=== PATIENT | female | born 1955 | race Caucasian/White ===

== ENCOUNTER 2022-11-17 07:40 | Outpatient (OUT) | payer MEDICARE, SELFPAY ==
--- NOTE | 2022-11-17 07:56 | CA_ITS ---
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: : 1955 Requested By: GILBERT ROSE Order Number: [id number] Reading MD: INDER RAO Interpretive Statements Predominant rhythm is sinus with average rate of 69 bpm Tachycardia - max rate of 177 bpm - 9 episodes of PSVT w/ longest duration of 6 beats - longest episode of 11min 56sec with rate of 113-127 bpm Bradycardia - min rate of 48 bpm, occurring at 2319 - longest episode of 52min 26sec w/ rate of 50-55 bpm Ventricular ectopy - 252 total (<1%) - 239 PVC - 4 couplets NSVT - 1 episode w/ 9 beat duration Patient triggered events: none Impression: Predominant rhythm is sinus with average rate of 69 bpm Fastest rate of 177 bpm and slowest rate of 48 bpm 239 PVC, 4 couplets 1 episodes of NSVT w/ 9 beat duration No pauses or blocks No atrial fibrillation Electronically Signed On 12-04-2022 17:12:37 EDT by INDER RAO
== END 2022-11-17 07:41 | disposition home or self-care (01) ==
LOC: CARD 07:40
PROVIDERS: PCP Family Medicine; Visit Provider Family Medicine
DX: I10 Essential (primary) hypertension (principal); R00.2 Palpitations; Z86.79 Personal history of other diseases of the circulatory system; I34.0 Nonrheumatic mitral (valve) insufficiency; R01.1 Cardiac murmur, unspecified
CPT/HCPCS: 93242

== ENCOUNTER 2022-11-25 07:37 | Outpatient (OUT) | payer MEDICARE, SELFPAY ==
--- NOTE | 2022-11-25 08:15 | CA_ITS ---
Patient: FIONA DE LA PAZ Exam Date: 11/25/2022 : 1955 Gender:F Ordering : DR GILBERT ROSE . Admission #: [id number] Family : Order #: [id number] CLICK HERE TO VIEW EXAM ECHOCARDIOGRAM REPORT PROCEDURE: CA ECHO DOPPLER COMPLETE INDICATIONS: Palpitations, hypertension, h/o rheumatic fever, heart murmur COMPARISON: None. DESCRIPTION: COMPLETE ECHOCARDIOGRAM Real-time transthoracic echocardiography with 2D, M-mode, spectral and color flow Doppler performed. QUALITY: Technical quality was good. LEFT VENTRICLE: Normal chamber size. Thickened septal wall. Normal systolic function. LV EF: Normal left ventricular ejection fraction, (>55%). DIASTOLIC: Grade I diastolic dysfunction. ATRIAL SEPTUM: Visually appears intact. LEFT ATRIUM: Mild dilatation. RIGHT ATRIUM: Normal chamber size. RIGHT VENTRICLE: Normal chamber size. Normal right ventricular systolic function. TRICUSPID VALVE: Normal mobility and thickness. No stenosis with mild regurgitation. Doppler studies reveal mildly (35-45) elevated right sided pressures. RVSP 35 mmHg MITRAL VALVE: Normal mobility and thickness. No evidence of mitral valve stenosis. Mild mitral annular calcification. Mild mitral regurgitation. AORTIC VALVE: Normal trileaflet appearance. No visible sclerosis. Normal leaflet mobility. No evidence of aortic valve stenosis. Trivial aortic regurgitation. AORTIC ROOT: Normal diameter and appearance. PULMONIC VALVE: Normal thickness and mobility. No stenosis. Trivial regurgitation. PERICARDIUM: No evidence of pericardial effusion. IVC: Collapses with inspirations. PLEURA: CONCLUSION: 1. Normal ventricular size and systolic function. LVEF is 55 to 60%. 2. Mild diastolic dysfunction. 3. No significant valvular dysfunction. 4. Mildly elevated right-sided pressures. Adult Echocardiography Procedure Report Left Ventricle LVEDD (3.7 - 5.6 cm): 4.22 cm LVESD (2.2 - 4.0 cm): 3.06 cm LVIVS thickness (0.6 - 1.2 cm): 1.08 cm LVPW thickness (0.5 - 1.0 cm): 0.94 cm e': 0.08 m/s E - e': 8.80 LVOT Max Gradient: 5.13 mm[Hg] LVOT Area (cm2): 1.13 m/s Peak Velocity (LVOT): 1.13 m/s Mean Velocity (LVOT): 0.72 m/s LVOT Diameter 2.21 cm Left Atrium LA Volume Index (2D A2C): 39.11 ml/m2 Left Atrium Systolic Dimension: 3.53 cm Mitral Valve MV E to A Ratio: 0.87 Mitral Valve A-Wave Peak Velocity: 0.78 m/s Mitral Valve E-Wave Peak Velocity: 0.68 m/s Right Ventricle Aorta AO Root Diam: 3.03 cm Ascending Ao Diam: 2.88 cm Aortic Valve AoV Area (Peak Matthieu): 3.10 cm2, 3.10 cm2 AoV Area (VTI): 3.36 cm2, 3.36 cm2 Peak Velocity(Antegrade Flow): 1.40 m/s Peak Gradient(Antegrade Flow): 7.86 mm[Hg] Mean Velocity(Antegrade Flow): 0.91 m/s Mean Gradient(Antegrade Flow): 3.84 mm[Hg] Velocity Time Integral: 28.97 cm Tricuspid Valve Peak Velocity (Regurgitant Flow): 2.84 m/s, 2.34 m/s, 2.67 m/s Pulmonic Valve Peak Velocity: 0.92 m/s Peak Gradient: 3.43 mm[Hg], 3.35 mm[Hg] Right Atrium Right Atrium Systolic Pressure: 33.63 ml, 33.63 ml Dictated by: Giovanny Tipton M.D. on 11/25/2022 at 17:55 Approved by: Giovanny Tipton M.D. on 11/25/2022 at 17:57
== END 2022-11-25 07:38 | disposition home or self-care (01) ==
LOC: CARD 07:37
PROVIDERS: PCP Family Medicine; Visit Provider Family Medicine
DX: R00.2 Palpitations (principal); I10 Essential (primary) hypertension; Z86.79 Personal history of other diseases of the circulatory system; I34.0 Nonrheumatic mitral (valve) insufficiency; R01.1 Cardiac murmur, unspecified
CPT/HCPCS: 93306

== ENCOUNTER 2023-01-03 08:58 | Outpatient (OUT) | payer MEDICARE, SELFPAY ==
--- NOTE | 2023-01-04 13:02 | P.STRESS_ITS ---
Stress Test Stress Test Requesting physician: GILBERT ROSE Procedure: Exercise stress test General Information: Reason for Stress Test: Abnormal echo Cardiac History and Risk Factors: HTN, SVT. Mother with afib. Resting 12 - Lead Electrocardiogram: Rate & rhythm: Normal sinus at a rate of 70. [place]: Normal T-waves: Normal ST-segments: Normal Stress Test: Protocol: Milan protocol was followed. Exercise capacity: Fair exercise capacity. Total exercise time of 6 minutes 31 seconds reached Milan stage 3 at 3.4MPH, 14% grade, & 8.5 METs. Blood pressure: Initial: 144/88, Maximum: 188/108, Recovery: 124/80 Rate & rhythm: Patient remained in sinus rhythm during the exercise and recovery portions of the study.? The maximum heart rate was 160, which was 104% of the maximum predicted heart rate 153. Rare PVCs. ST-segments & T-waves: During recovery, the patient developed 0.5mm ST segment depression in II, III, & aVF and ST downsloping in V5 & V6. Patient response/symptoms: There was no chest pain reported. Interpretation: Abnormal exercise stress test given ST segment depression in the inferior leads and ST segment downsloping in the lateral leads. No chest pain. Liriano Treadmill Score is 4 which places her at a moderate risk. Further investigation is indicated. Clinical correlation required.
== END 2023-01-03 08:59 | disposition home or self-care (01) ==
LOC: CARD 08:58
PROVIDERS: PCP Family Medicine; Visit Provider Family Medicine
DX: I47.20 Ventricular tachycardia, unspecified (principal); Z86.79 Personal history of other diseases of the circulatory system; I34.0 Nonrheumatic mitral (valve) insufficiency; I51.89 Other ill-defined heart diseases; I27.20 Pulmonary hypertension, unspecified; R94.39 Abnormal result of other cardiovascular function study
CPT/HCPCS: 93017

== ENCOUNTER 2023-02-27 06:08 | Outpatient (OUT) | payer MEDICARE, SELFPAY ==
--- NOTE | 2023-02-27 06:15 | NM_ITS ---
Patient Name: FIONA DE LA PAZ MR#: [id number] : 1955 Exam Date: 02/27/2023 Ordering Doctor: DR GILBERT ROSE . RADIOLOGY REPORT PROCEDURE: NM JORGE ALBERTO PERF SPECT REST STR COMPARISON: None. INDICATIONS: VENTRICULAR TACHYCARDIA, HYPERTENSION TECHNIQUE: Exam Description: Stress/Rest one day protocol gated SPECT Rest Imagin.3 mCi Tc-99m Cardiolite IV on 02/27/2023 Stress Imaging 30.8 mCi Tc-99m Cardiolite IV on 02/27/2023 Exercise Protocol: [place] Heart Rate (bpm): Rest: 60 Max: 141 PMHR: 92 Blood Pressure: Rest: 144/96 Max: 196/106 Exercise Time: Minutes: 6 Seconds: 00 Stage Reached: Stage: 2 Mets 7.0 Symptoms: Rest and peak stress ECG findings were abnormal and the exercise portion of the study was abnormal per attending physician Dr. Stephens due to EKG changes. For more details please see separate cardiac stress test report. FINDINGS: QUALITY OF STUDY: Good. PERFUSION DEFECT: None. LOCATION: N/A SIZE: N/A. SEVERITY: N/A. TYPE: N/A. WALL MOTION: Normal. LV SIZE: Normal. 71 mL. TID / TCD: None; 0.8 LVEF: Normal. Calculated EF 81%. SUMMARY: Myocardial perfusion imaging study is NORMAL. CONCLUSION: 1. Normal myocardial perfusion scan with no reversible ischemia 2. Abnormal exercise test secondary to EKG changes Dictated by: Joshua Adames MD on 02/27/2023 at 15:04 Approved by: Joshua Adames MD on 02/27/2023 at 15:07
--- NOTE | 2023-02-27 10:17 | PM.STRESS ---
Stress Test Stress Test Requesting physician: GILBERT ROSE Procedure: Exercise Cardiolite stress test General Information: Reason for Stress Test: Ventricular tachycardia, history of abnormal stress test (which is not available for review) Cardiac History and Risk Factors: Mother had afib. Resting 12 - Lead Electrocardiogram: Rate & rhythm: Sinus bradycardia at a rate of 57. [place]: Normal T-waves: ST-segments: Normal orientation Stress Test: Protocol: Milan protocol was followed, with injection of Cardiolite once target heart rate was achieved. Exercise capacity: Fair exercise capacity. Total exercise time of 6 minutes reached Milan stage 2 at 2.5MPH, 12% grade, & 7 METs. Blood pressure: Initial: 144/96, Maximum: 196/106, Recovery: 142/88 Rate & rhythm: Patient remained in sinus rhythm during the exercise and recovery portions of the study.? The maximum heart rate was 141, which was 92% of the maximum predicted heart rate 153. PACs noted once target heart rate achieved. ST-segments & T-waves: During recovery, there was ST-segment downsloping in the inferior leads (II, III, aVF) and 0.5-1mm ST-segment depression in V4-6. Patient response/symptoms: No chest pain reported. Interpretation: This is an abnormal exercise stress test based on abnormal ST-segment changes in the inferolateral leads. Cardiolite imaging interpretation will be reported separately. Clinical correlation required.?
== END 2023-02-27 06:09 | disposition home or self-care (01) ==
LOC: NM 06:09
PROVIDERS: PCP Family Medicine; Visit Provider Family Medicine
DX: R94.39 Abnormal result of other cardiovascular function study (principal); I47.29 Other ventricular tachycardia; Z86.79 Personal history of other diseases of the circulatory system; I10 Essential (primary) hypertension; R94.31 Abnormal electrocardiogram [ECG] [EKG]
CPT/HCPCS: 78452; 93017; A9500

== ENCOUNTER 2024-10-21 09:56 | Outpatient (OUT) | payer MEDICARE, SELFPAY ==
--- OUTSIDE RECORDS SUMMARY | 2024-10-21 10:00 | XMS_ITS | Encounter Summary ---
Author Organization [facility] Address [address] [place] [address] Care Team Providers Care Art Education Professor Name Role Phone Lorenzo Ellington MD Unavailable [phone] Lorenzo Ellington MD Primary Care Provider [phone] Encounter Details Date Type Department Care Team (Late st Contact Info) Description 05/04/2023 Orders Only [facility] [address] [place] [address] Lorenzo Ellington MD [address] [facility] [address] [place] [address] Social History Tobacco Use Types Packs/Day Years Used Date Smoking Tobacco: Never Passive Smoke Exposure: Never Smokeless Tobacco: Never Alcohol Use Standard Drinks/Week Comments Yes 2 (1 standard drink = 0.6 oz pure alcohol) Caffeine intake: 2 cups per day coffee Humiliation, Afraid, Rape, and Kick questionnair e Answer Date Recorded Within the last year, have y ou been afraid of your partner or ex-partner? No 01/12/2023 Within the last year, have y ou been humiliated or emotionally abused in other ways by your partner or ex-partner? No Within the last year, have y ou been kicked, hit, slapped, or otherwise physically hurt by your partner or ex-partner? No 01/12/2023 Within the last year, have y ou been raped or forced to have any kind of sexual activity by your partner or ex-partner? No 01/12/2023 Social Connection and Isolat ion Panel [NHANES] Answer Date Recorded In a typical week, how many times do you talk on the phone with family, friends, or neighbors? More than three times a week 01/12/2023 How often do you get togethe r with friends or relatives? Twice a week 01/12/2023 How often do you attend chur or restorationist services? 1 to 4 times per year 01/12/2023 Do you belong to any clubs o r organizations such as scientology groups, unions, fraternal or athletic groups, or school groups? No 01/12/2023 How often do you attend meet ings of the clubs or organizations you belong to? Never 01/12/2023 Are you , , di vorced, , never , or living with a partner? 01/12/2023 AUDIT-C Answer Date Recorded Q1: How often do you have a drink containing alc ohol? Monthly or less 01/12/2023 Q2: How many drinks containi ng alcohol do you have on a typical day when you are drinking? 1 or 2 01/12/2023 Q3: How often do you have si x or more drinks on one occasion? Never 01/12/2023 Overall Financial Resource Strain (CARDIA) Answe r Date Recorded How hard is it for you to pa y for the very basics like food, housing, medical care, and heating? Not hard at all 01/12/2023 PHQ-2 Answer Date Recorded Patient Health Questionnaire-2 Score 0 01/12/2023 [facility] - Occupational Stress Questionnaire Answer Date Recorded Do you feel stress - tense, restless, nervous, or anxious, or unable to sleep at night because your mind is troubled all the time - these days? To some extent 01/12/2023 Exercise Vital Sign Answer Date Recorde d On average, how many days pe r week do you engage in moderate to strenuous exercise (like a brisk walk)? 2 days 01/12/2023 On average, how many minutes do you engage in exercise at this level? 30 min 01/12/2023 Hunger Vital Sign Answer Date Recorded Within the past 12 months, y ou worried that your food would run out before you got the money to buy more. Never true 01/13/20 Within the past 12 months, t he food you bought just didn't last and you didn't have money to get more. Never true 01/12/2023 PRAPARE - Transportation Answer Date Re corded In the past 12 months, has l ack of transportation kept you from medical appointments or from getting medications? No 12/19 In the past 12 months, has l ack of transportation kept you from meetings, work, or from getting things needed for daily living? No 01/12/2023 Housing Stability Vital Sign Answer Shayan e Recorded In the last 12 months, was t here a time when you were not able to pay the mortgage or rent on time? No 01/12/2023 In the last 12 months, how many places have you lived? 1 01/12/2023 In the last 12 months, was t here a time when you did not have a steady place to sleep or slept in a nursing home (including now)? No 01/12/2023 Comments No Sex and Gender Information Value Date Recorded Sex Assigned at Not on file Legal Sex Female 6:41 PM EDT Gender Identity Not on file Sexual Orientation Not on file documented as of this encounter Plan of Treatment Upcoming Encounters Date Type Department Care Team (Late st Contact Info) Description 04/02/2025 10:30 AM EST Office Visit [facility] [address] [facility] [address] [place] [address] Lorenzo Ellington MD [address] [address] documented as of this encounter Visit Diagnoses Not on filedocumented in this encounter Additional Health Concerns Assessment Noted Time PHQ-9 Depression Total Score: 0 01/13/20 2:00 PM EDT documented as of this encounter Care Teams Art Education Professor Relationship Specialty Start Date End Date Lorenzo Ellington MD [address] [place] [address] (Fax) PCP - ACO Reach 08/11/22 Lorenzo Ellington MD [address] [address] PCP - General Family Medicine 07/26/22 documented as of this encounter
--- OUTSIDE RECORDS SUMMARY | 2024-10-21 10:00 | XMS_ITS | Clinical Summary ---
Author Organization [facility] Address [address] [place], [place] [id number] Care Team Providers Care Crutching Contractor Name Role Phone Unavailable Primary Care Provider Unavailabl e Allergies No known active allergies Medications paroxetine (PAXIL) 10 mg ORAL tablet Take 1 tablet by mouth once daily. 0 07/09/2010 Active mesalamine (ASACOL) 400 mg ORAL EC tablet Take 1 tablet by mouth twice daily. 0 07/09/2010 Active acetaminophen-h ydrocodone (VICODIN) 5-500 mg ORAL per tablet Take 1-2 tablets by mouth every 6 hours as needed for Pain. for pain. 0 07/09/2010 Active Social History Tobacco Use Types Packs/Day Years Used Date Smoking Tobacco: Never Smokeless Tobacco: Never Alcohol Use Standard Drinks/Week Comments Yes 0 (1 standard drink = 0.6 oz pur e alcohol) occ. Comments Unknown Sex and Gender Information Value Date Recorded Sex Assigned at Not on file Legal Sex Female 8:35 AM EST Gender Identity Not on file Sexual Orientation Not on file Plan of Treatment Health Maintenance Due Date Last Done Comments Anxiety Screening 11/03/1973 Depression Screening 11/03/1973 Hepatitis C Screening 11/03/1973 DTaP,Tdap,Td Vaccine (1 - Tdap) 11/03/[address] Colonography 11/03/2000 Cologuard (FIT-DNA) 11/03/2000 Colonoscopy 11/03/2000 Colorectal Cancer Screening 11/03/2000 Diabetes Screening 11/03/2000 Fecal Occult Blood 11/03/2000 Lipid Screening 11/03/2000 Sigmoidoscopy 11/03/2000 Pneumococcal Vaccine: 50+ (1 of 1 - PCV) 11/03/2005 Shingrix Vaccine (1 of 2) 11/03/2005 Bone Density Screening 11/03/2020 Advance Directive Discussion 03/20/2024 Influenza Vaccine (#1) 2024 RSV Vaccine (1 - 1-dose 75+ series) 11/03/2030 Insurance [facility] PPO
--- OUTSIDE RECORDS SUMMARY | 2024-10-21 10:00 | XMS_ITS | Clinical Summary ---
Author Organization [facility] Address [address] [place] [address] Care Team Providers Care Turntable Engineer Name Role Phone Lorenzo Ellington MD Unavailable [phone] Lorenzo Ellington MD Primary Care Provider [phone] Allergies Active Allergy Reactions Criticality Noted Date Comments Azatadine Low 11/10/2022 Other Reaction(s): hives Cefuroxime Low 11/10/2022 Other Reaction(s): hives Metoprolol Anxiety,Dizziness Low 06/29/2023 Pseudoephedrine Low 11/10/2022 Other Reaction(s): hives Tramadol Low 11/10/2022 Other Reaction(s): hives Medications ALPRAZolam (Xanax) 0.25 MG tabletIndication s:Situational mixed anxiety and depressive disorder Take 1 tablet (0.25 mg) by mouth 3 (three) times a day as needed for anxiety for up to 7 days 21 tablet 4 Active nebivolol (Bystolic) 10 MG tabletIndication s:Primary hypertension Take 1 tablet (10 mg) by mouth Daily Pt using good rx instead insurance 90 tablet 1 5 03/23/19 26 Active losartan (Cozaar) 100 MG tabletIndication s:Primary hypertension Take 1 tablet (100 mg) by mouth Daily 90 tablet 1 5 03/23/19 26 Active nebivolol (Bystolic) 10 MG tabletIndication s:Primary hypertension Take 1 tablet (10 mg) by mouth Daily Pt using good rx instead insurance 90 tablet 1 5 09/25/19 25 Discontin ued(Reord er) citalopram (CeleXA) 20 MG tabletIndication s:MONTSERRAT (generalized anxiety disorder) Take 1 tablet (20 mg) by mouth Daily 90 tablet 1 5 10/02/19 25 Discontin ued(Thera py completed ) losartan (Cozaar) 100 MG tabletIndication s:Primary hypertension Take 1 tablet (100 mg) by mouth Daily 90 tablet 5 09/25/19 25 Discontin ued(Reord er) Active Problems Problem Noted Date Diagnosed Date Overweight (BMI 25.0-29.9) 09/11/2024 History of invasive ductal carcinoma of breast 0 06/05/2024 Overview (06/05/2024): 2018 Stage T1a N0 M0 left upper outer quadrant MONTSERRAT (generalized anxiety disorder) 10/23/2023 Nonsustained ventricular tachycardia 06/21/2023 Overview (06/21/2023): December 01, 2022 on Holter monitor. Pulmonary hypertension 06/21/2023 Overview (06/21/2023): Echocardiogram November 2022, elevated right side pressure 35-40 Abnormal finding on cardiovascular stress test 1 Overview (06/21/2023): February 2023 Initial exercise stress test demonstrated abnormalities in the inferior wall region. Subsequent stress Cardiolite testing again reproduced the EKG changes, but the myocardial perfusion images were normal. History of rheumatic fever 11/20/2022 Diverticulosis of large intestine without hemorr cuca 11/10/2022 Generalized osteoarthrosis, involving multiple s ites 11/10/2022 Heart murmur 11/10/2022 Nonrheumatic mitral valve regurgitation 11/11/19 23 Overview (06/21/2023): Echocardiogram November 2022 Mild mitral annular calcification. Mild mitral regurgitation Presence of left artificial knee joint Primary hypertension 11/10/2022 Primary osteoarthritis of right knee 11/10/2022 Resolved Problems Problem Noted Date Diagnosed Date Resolved Date Situational mixed anxiety an d depressive disorder 10/23/2023 05/29/2024 Polypharmacy 10/23/2023 05/14/2024 Special screening for malign ant neoplasms, colon 10/09/2023 09/10/2024 Lymphocytic colitis 11/10/2022 11/08/19 Encounters Date Type Department Care Team Description 09/24/2024 9:00 AM EDT Office Visit [facility] [address] [place] [address] [place] [address] Lorenzo Ellington MD Primary hypertension ; MONTSERRAT (generalized anxiety disorder) ; Overweight (BMI 25.0-29.9); Screening for diabetes mellitus (DM); Encounter for lipid screening for cardiovascular disease; Nonrheumatic mitral valve regurgitation; Rheumatic aortic valve insufficiency; Heart murmur; Pulmonary hypertension (HCC) 09/24/2024 Bamboo flowsheet [facility] [address] [place] [address] [place] [address] Lorenzo Ellington MD 09/24/2024 Travel 09/18/2024 Travel 09/17/2024 Refill [facility] [address] [place] [address] [place] [address] Lorenzo Ellington MD Primary hypertension 09/11/2024 2:00 PM EDT Procedure Visit [facility] [address] [place] [address] [place] [address] Lorenzo Ellington MD Chronic pain of right knee (Primary Dx); Primary osteoarthritis of right knee; Overweight (BMI 25.0-29.9) 09/11/2024 Travel 08/20/2024 Telephone [facility] [address] [place] [address] [place] [address] Marcia Acharya ANGEL Care Coordination 08/13/2024 Telephone [facility] [place] [address] [place] [address] Marcia Acharya MA Care Coordination 08/08/2024 Telephone [facility] [address] [address] Lorenzo Ellington MD from Last 3 Months Immunizations Immunization Administration Dates Next Due Hep B, adult 01/21/2000,08/06/1999,07/07/1999 Family History Medical History Relation Name Comments COD Father Piyush Depression Father Piyush Fall Father Piyush Hypertension Father Piyush Arthritis Mother Su Atrial fibrillation Mother Su Hearing loss Mother Su Heart disease Mother Su Colon cancer Paternal Grandfather Petr Heart disease Paternal Grandfather [place] Breast cancer Neg Hx Ovarian cancer Neg Hx Relation Name Status Comments Brother 2 brothers Daughter Alive 2 daughters Father Piyush Mother Su Other spouse Paternal Grandfather Petr Sister 1 sister Son Alive 1 son Social History Tobacco Use Types Packs/Day Years Used Date Smoking Tobacco: Never Passive Smoke Exposure: Never Smokeless Tobacco: Never Tobacco Cessation:Counseling Given: Yes Alcohol Use Standard Drinks/Week Comments Not Currently 2 (1 standard drink = 0.6 oz pure alcohol) Caffeine intake: 2 cups per day coffee B1300 Health Literacy Answer Date Recor ded How often do you need to hav e someone help you when you read instructions, pamphlets, or other written material from your doctor or pharmacy? Never 05/01/2024 Humiliation, Afraid, Rape, and Kick questionnair e [...] neighbors? More than three times a week 05/01/2024 How often do you get togethe r with friends or relatives? Once a week 05/01/2024 How often do you attend chur ch or gnosticist services? Never 05/01/2024 Do you belong to any clubs o r organizations such as latter day groups, unions, fraternal or athletic groups, or school groups? No 05/01/2024 How often do you attend meet ings of the clubs or organizations you belong to? Never 05/01/2024 Are you , , di vorced, , never , or living with a partner? 05/01/2024 AUDIT-C Answer Date Recorded Q1: How often do you have a drink containing alcohol? Monthly or less 05/01/2024 Q2: How many drinks containi ng alcohol do you have on a typical day when you are drinking? Patient does not drink Q3: How often do you have si x or more drinks on one occasion? Never 05/01/2024 Overall Financial Resource Strain (CARDIA) Answe r Date Recorded How hard is it for you to pa y for the very basics like food, housing, medical care, and heating? Not hard at all 05/01/2024 PHQ-2 Answer Date Recorded Patient Health Questionnaire-2 Score 0 09/24/2024 [facility] - Occupational Stress Questionnaire Answer Date Recorded Do you feel stress - tense, restless, nervous, or anxious, or unable to sleep at night because your mind is troubled all the time - these days? Only a little 05/01/2024 Exercise Vital Sign Answer Date Recorde d On average, how many days pe r week do you engage in moderate to strenuous exercise (like a brisk walk)? 1 day 05/01/2024 On average, how many minutes do you engage in exercise at this level? 30 min 05/01/2024 Hunger Vital Sign Answer Date Recorded Within the past 12 months, y ou worried that your food would run out before you got the money to buy more. Never true 05/01/19 25 Within the past 12 months, t he food you bought just didn't last and you didn't have money to get more. Never true 05/01/2024 PRAPARE - Transportation Answer Date Re corded In the past 12 months, has l ack of transportation kept you from medical appointments or from getting medications? No 04/20 In the past 12 months, has l ack of transportation kept you from meetings, work, or from getting things needed for daily living? No 05/01/2024 Housing Stability Vital Sign Answer Shayan e [...] place to sleep or slept in a [place] facility (including now)? No 01/12/2023 Housing Stability Vital Sign Answer Shayan e Recorded In the last 12 months, was t here a time when you were not able to pay the mortgage or rent on time? No 05/01/2024 In the past 12 months, how m any times have you moved where you were living? 1 05/01/2024 At any time in the past 12 m [facility], were you homeless or living in a [place] health [place] facility (including now)? No 05/01/2024 Comments No Sex and Gender Information Value Date Recorded Sex Assigned at Not on file Legal Sex Female 6:41 PM EDT Gender Identity Not on file Sexual Orientation Not on file Last Filed Vital Signs Vital Sign Reading Time Taken Comments Blood Pressure 128/76 09/24/2024 9:05 AM EDT Pulse 51 09/24/2024 9:05 AM EDT Temperature - - Respiratory Rate - - Oxygen Saturation 98% 09/24/2024 9:05 AM EDT Inhaled Oxygen Concentration - - Weight 78 kg (172 lb) 09/24/2024 9:05 AM EDT Height 167.6 cm (5' 6 ) 09/24/2024 9:05 AM EDT Body Mass Index 27.76 09/24/2024 9:05 AM EDT Plan of Treatment Upcoming Encounters Date Type Department Care Team (Late st Contact Info) Description 04/02/2025 10:30 AM EST Office Visit [facility] 112 [facility] 100 [place] [address] Lorenzo Ellington MD 112 [facility] 100 [place] [address] Health Maintenance Due Date Last Done Comments CT Colonography 1955 FIT-DNA 1955 FIT 1955 FOBT 1955 Sigmoidoscopy 1955 Influenza Vaccine (#1) 2024 Mammogram 12/24/2024 12/25/2023, 04/2022, 12/14/2021, Additional history exists Pneumococcal Vaccine: 65+ Years (1 of 2 - PCV) 05/08/2025 Postponed from 11/03/1974 (Patient Refused) Medicare Annual Wellness (AWV) 05/29/2025 05/29/2024, 01/12/2023, 05/24/2021 Colonoscopy 10/30/2033 10/31/2023, 10/18, 05/13/2013 Colorectal Cancer Screening 10/30/2033 Procedures Procedure Name Priority Date/Time Associated Diagnosis Comments BI MAMMOGRAM SCREENING TOMOSYNTHESIS BILATERAL 12/25/2023 3:38 PM EDT COLONOSCOPY Routine 10/31/2023 9:36 AM EDT from Last 3 Months or Most Recently Relevant to Health Maintenance Results * Bilateral screening mammogram with tomosynthesis (12/25/2023 3:38 PM EDT) Anatomical Region Laterality Modality Breast Bilateral Mammography 12/25/2023 3:38 PM EDT Impressions 12/25/2023 3:41 PM EDT NO MAMMOGRAPHIC EVIDENCE OF MALIGNANCY. ROUTINE FOLLOW-UP IS RECOMMENDED IN ONE YEAR. RESULT CODE: 1 Negative DENSITY CODE: 2 (approximately 25-50% glandular) FOLLOW UP: 1YR The false-negative rate of mammography is approximately 10-percent. Management of a palpable abnormality must be based on clinical grounds. Patient was entered into a reminder system with a target due date for the next mammogram. Impression dictated by: Kevin Salcedo Jr., D.O.12/25/2023 3:39 PM Dictation Location: [id number] Transcribed By: TRISTAN 12/25/23 1539 Dictated By: Kevin Salcedo Jr, DO 12/25/23 1538 Signed By: <Electronically signed by Kevin Salcedo Jr, DO in OV> 12/25/23 1539 Narrative 12/25/2023 3:41 PM EDT [address] [address] Mammography Report Signed Patient: Ruth Richards MR#: [id number] 92 : 1955 Acct:[id number] Age/Sex: 68 / F ADM Date: 12/25/23 Loc: MA Room: Type: REG CLI Attending Dr: Lorenzo Ellington MD Copies to: Lorenzo Ellington MD Ordering Provider: Lorenzo Ellington MD Date of Service: 12/25/23 MM/MM screening mammo BI w/CAD: SCREENING CLINICAL DATA: Screening for malignancy. History of left-sided breast cancer status post lumpectomy in 2014. SCREENING MAMMOGRAM - FULL FIELD DIGITAL WITH TOMOSYNTHESIS AND CAD COMPARISON:Mammograms dating back to 2020 Tomosynthesis craniocaudal and mediolateral oblique views of both breasts were obtained using low- dose digital technique. This examination was reviewed with the aid of CAD. FINDINGS: The breast tissue is composed of scattered fibroglandular densities. There are no dominant masses, typically malignant calcifications or architectural distortion. There has been no significant interval change. MM/MM screening mammo BI w/CAD Procedure Note Radiology, Radiologist, MD - 12/25/[address] [address] Mammography Report Signed Patient: Ruth Richards EMR#: [id number] [birth year] : 6Acct:[id number] Age/Sex: 68 / FADM Date: 12/25/23 Loc: MA Room:Type: REG CLI Attending Dr: Lorenzo Ellington MD Copies to: Lorenzo Ellington MD Ordering Provider: Lorenzo Ellington MD Date of Service: 12/25/23 MM/MM screening mammo BI w/CAD: SCREENING CLINICAL DATA: Screening for malignancy. History of left-sided breastcancer status post lumpectomy in 2015. SCREENING MAMMOGRAM - FULL FIELD DIGITAL WITH TOMOSYNTHESIS AND CAD COMPARISON:Mammograms dating back to 2020 Tomosynthesis craniocaudal and mediolateral oblique views of both breastswere obtained using low- dose digital technique. This examination was reviewed with the aid ofCAD. FINDINGS: The breast tissue is composed of scattered fibroglandular densities.There are no dominant masses, typically malignant calcifications or architectural distortion. There hasbeen no significant interval change. MM/MM screening mammo BI w/CAD IMPRESSION: NO MAMMOGRAPHIC EVIDENCE OF MALIGNANCY. ROUTINE FOLLOW-UP IS RECOMMENDED IN ONE YEAR. RESULT CODE: 1 Negative DENSITY CODE: 2 (approximately 25-50% glandular) FOLLOW UP: 1YR The false-negative rate of mammography is approximately 10-percent. Management of a palpable abnormality must be based on clinical grounds. Patient was entered into a reminder system with a target due date for thenext mammogram. Impression dictated by: Kevin Salcedo Jr., D.O.12/25/2023 3:39 PM Dictation Location: [facility] Transcribed By: [facility] 12/25/23 1539 Dictated By: Kevin Salcedo Jr, DO 12/25/23 1538 Signed By: <Electronically signed by Kevin Salcedo Jr, DO inOV> 12/25/23 1539 Lorenzo Ellington MD IMG BI PROCEDURES Final Resu lt * Colonoscopy (10/31/2023 9:36 AM EDT) Anatomical Region Laterality Modality Endoscopy Josh Cole DO ENDOSCOPY PROCEDURE ORDER CHAY Final Result from Last 3 Months or Most Recently Relevant to Health Maintenance Insurance MEDICARE Advance Directives Documents on File Type Date Recorded Patient Crystal 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
--- OUTSIDE RECORDS SUMMARY | 2024-10-21 10:00 | XMS_ITS | Encounter Summary ---
Author Organization [facility] Address [address] [place] [address] Care Team Providers Care Burial Vault Deliverer And Installer Name Role Phone Lorenzo Rose MD Unavailable [phone] Lorenzo Rose MD Primary Care Provider [phone] Encounter Details Date Type Department Care Team (Late Contact Info) Description 12/01/2022 Clinisync Result Encounter [facility] External Department Unsolicited Lorenzo Rose MD [address] [address] Social History Tobacco Use Types Packs/Day Years Used Date Smoking Tobacco: Never Passive Smoke Exposure: Never Smokeless Tobacco: Never Alcohol Use Standard Drinks/Week Comments Yes 2 (1 standard drink = 0.6 oz pure alcohol) Caffeine intake: 2 cups per day coffee Comments No Sex and Gender Information Value Date Recorded Sex Assigned at Not on file Legal Sex Female 6:41 PM EDT Gender Identity Not on file Sexual Orientation Not on file documented as of this encounter Plan of Treatment Upcoming Encounters Date Type Department Care Team (Late Contact Info) Description 04/02/2025 10:30 AM EST Office Visit [facility] 112 [facility] 100 [place] [address] Lorenzo Rose MD 112 [facility] 100 [place] [address] documented as of this encounter Procedures Procedure Name Priority Date/Time Associated Diagnosis Comments CA HOLTER MONITOR 2-7 DAYS 12/01/2022 8:28 AM EDT documented in this encounter Results * CA HOLTER MONITOR 2-7 DAYS (12/01/2022 8:28 AM EDT) Anatomical Region Laterality Modality Other 12/01/2022 8:28 AM EDT Narrative 12/01/2022 8:28 [place] [address] Cardiology Report Signed Patient: FIONA RICHARDS MR#: [id number] : 1955 Acct:[id number] Age/Sex: 67 / F ADM Date: 11/17/22 Loc: CARD Attending Dr: LORENZO ROSE Ordering Physician: LORENZO ROSE Date of Service: 11/17/22 Procedure(s): CA holter montior 2-7 days Accession Number(s): [id number] cc: [facility] Test Date: 2022-12-01 Pat Name: FIONA RICHARDS Department: Room: - Gender: Female Machine Bander And Cellophaner: : 1955 Requested By: LORENZO ROSE Order Number: [id number] Reading MD: ROMAINE RAO Interpretive Statements Predominant rhythm is sinus with average rate of 69 bpm Tachycardia - max rate of 177 bpm - 9 episodes of PSVT w/ longest duration of 6 beats - longest episode of 11min 56sec with rate of 113-127 bpm Bradycardia - min rate of 48 bpm, occurring at 2319 - longest episode of 52min 26sec w/ rate of 50-55 bpm Ventricular ectopy - 252 total (<1%) - 239 PVC - 4 couplets NSVT - 1 episode w/ 9 beat duration Patient triggered events: none Impression: Predominant rhythm is sinus with average rate of 69 bpm Fastest rate of 177 bpm and slowest rate of 48 bpm 239 PVC, 4 couplets 1 episodes of NSVT w/ 9 beat duration No pauses or blocks No atrial fibrillation Electronically Signed On 12-04-2022 17:12:37 EDT by ROMAINE RAO Dictated By: Romaine Rao D.O. Signed By: 12/04/22171212/04/221712 DD/ 7 TD/TT: Arch Cushion Skiving Machine Operator: Procedure Note Radiology, Radiologist, - 12/08/2022 [address] [place] [id number] Cardiology Report Signed Patient: FIONA RICHARDS EMR#: [id number] : 1955cct:[id number] Age/Sex: 67 / FADM Date: 11/17/22 Loc: CARD Attending Dr: LORENZO ROSE Ordering Physician: LORENZO ROSE Date of Service: 11/17/22 Procedure(s): CA holter montior 2-7 days Accession Number(s): [id number] cc: [facility] Test Date: 2022-12-01 Pat Name: FIONA RICHARDS Department: Room: - Gender: Female Machine Bander And Cellophaner: : 1955 Requested By: LORENZO ROSE Order Number: [id number] Reading MD: ROMAINE RAO Interpretive Statements Predominant rhythm is sinus with average rate of 69 bpm Tachycardia - max rate of 177 bpm - 9 episodes of PSVT w/ longest duration of 6 beats - longest episode of 11min 56sec with rate of 113-127 bpm Bradycardia - min rate of 48 bpm, occurring at 2319 - longest episode of 52min 26sec w/ rate of 50-55 bpm Ventricular ectopy - 252 total (<1%) - 239 PVC - 4 couplets NSVT - 1 episode w/ 9 beat duration Patient triggered events: none Impression: Predominant rhythm is sinus with average rate of 69 bpm Fastest rate of 177 bpm and slowest rate of 48 bpm 239 PVC, 4 couplets 1 episodes of NSVT w/ 9 beat duration No pauses or blocks No atrial fibrillation Electronically Signed On 12-04-2022 17:12:37 EDT by ROMAINE RAO Dictated By: Romaine Rao D.O. Signed By:12/04/22171212/04/221712 DD/ 7 TD/TT: Arch Cushion Skiving Machine Operator: Lorenzo Rose MD [facility] Final Resu lt documented in this encounter Visit Diagnoses Not on filedocumented in this encounter Care Teams Burial Vault Deliverer And Installer Relationship Specialty Start Date End Date Lorenzo Rose MD 112 [facility] [address] [place] [address] PCP - ACO Reach 08/11/22 Lorenzo Rose MD [address] [address] PCP - General Family Medicine 07/26/22 documented as of this encounter
--- OUTSIDE RECORDS SUMMARY | 2024-10-21 10:00 | XMS_ITS | Encounter Summary ---
Author Organization [facility] Address [address] [place] [address] Care Team Providers Care Gate Agent Name Role Phone Lorenzo Ellington MD Unavailable [phone] Lorenzo Ellington MD Primary Care Provider [phone] Encounter Details Date Type Department Care Team (Late st Contact Info) Description 12/25/2023 External Result Encounter [facility] External Department Unsolicited Lorenzo Ellington MD [address] [place] [address] Social History Tobacco Use Types Packs/Day Years Used Date Smoking Tobacco: Never Passive Smoke Exposure: Never Smokeless Tobacco: Never Alcohol Use Standard Drinks/Week Comments Not Currently [...] How often do you attend chur or hindu services? 1 to 4 times per year 01/12/2023 Do you belong to any clubs o r organizations such as mormonism groups, unions, fraternal or athletic groups, or [...] Recorded Patient Health Questionnaire-2 Score 0 01/12/2023 [facility] - Occupational [...] money to buy more. Never true 01/13/20 23 Within the past 12 months, t he [...] place to sleep or slept in a intermediate (including now)? No 01/12/2023 Comments No Sex [...] Visit [facility] 112 [facility] 100 [place] [address] Lorenzo Ellington MD 112 [facility] 100 [place] [address] documented as of this encounter Procedures Procedure Name Priority Date/Time Associated Diagnosis Comments BI MAMMOGRAM SCREENING TOMOSYNTHESIS BILATERAL 12/25/2023 3:38 PM EDT documented in this encounter Results * Bilateral screening mammogram with tomosynthesis [...] mammogram. Impression dictated by: Kevin Salcedo Jr., D.ODanitza12/25/2023 3:39 PM Dictation Location: [facility] Transcribed By: PWS 12/25/23 1539 Dictated By: Kevin Salcedo Jr, DO 12/25/23 1538 Signed By: <Electronically signed by Kevin Salcedo Jr, DO in OV> 12/25/23 1539 Narrative 12/25/2023 3:41 PM EDT [place] [id number] Mammography Report Signed Patient: Ruth Richards MR#: [id number] 92 : 1955 Acct:[id number] Age/Sex: 68 / F ADM Date: 12/25/23 Loc: MD Room: Type: [facility] Attending Dr: Lorenzo Ellington MD Copies to: [...] mammo BI w/CAD Procedure Note Radiology, Radiologist, - 12/25/[address] [address] Mammography Report Signed Patient: Ruth Richards EMR#: [id number] [birth year] : 6Acct:[id number] Age/Sex: 68 / FADM Date: 12/25/23 Loc: MD Room:Type: [facility] Attending Dr: Lorenzo Ellington MD Copies to: Lorenzo Ellington MD Ordering Provider: Lorenzo Ellington MD Date of Service: 12/25/23 MM/MM screening mammo BI w/CAD: SCREENING CLINICAL DATA: Screening for malignancy. History of left-sided breastcancer status post lumpectomy in 2014. SCREENING MAMMOGRAM [...] Salcedo Jr., D.O.12/25/2023 3:39 PM Dictation Location: [facility] Transcribed By: TRISTAN 12/25/23 1539 Dictated By: Kevin Salcedo Jr, DO 12/25/23 1538 Signed By: <Electronically signed by Kevin Salcedo Jr, DO inOV> 12/25/23 1539 us Lorenzo Ellington MD IMG BI PROCEDURES Final Resu lt documented in this encounter Visit Diagnoses Not on filedocumented in this encounter Additional Health Concerns Assessment Noted Time PHQ-9 Depression Total Score: 0 01/13/20 23 2:00 PM EDT documented as of this encounter Care Teams Gate Agent Relationship Specialty Start Date End Date Lorenzo Ellington MD [address] [place] [address] PCP - ACO Reach 08/11/22 Lorenzo Ellington MD [address] [place] [address] PCP - General Family Medicine 07/26/22 documented as of this encounter
--- OUTSIDE RECORDS SUMMARY | 2024-10-21 10:00 | XMS_ITS | Clinical Summary ---
Author Organization [facility] Address [address] [place] [address] Phone Care Team Providers Care Roller Operator Name Role Phone Unavailable Primary Care Provider Unavailabl e Social History Tobacco Use Types Packs/Day Years Used Date Smoking Tobacco: Never Assessed Comments Unknown Sex and Gender Information Value Date Recorded Sex Assigned at Not on file Legal Sex Female 10:53 PM EST Gender Identity Not on file Sexual Orientation Not on file Plan of Treatment Not on file
--- OUTSIDE RECORDS SUMMARY | 2024-10-21 10:00 | XMS_ITS | Encounter Summary ---
Author Organization [facility] Address [address] [place] [address] Care Team Providers Care Exhaust And Muffler Repairer Name Role Phone Lorenzo Rose MD Unavailable [phone] Lorenzo Rose MD Primary Care Provider [phone] Encounter Details Date Type Department Care Team (Late st Contact Info) Description 02/27/2023 Clinisync Result Encounter [facility] External Department Unsolicited Lorenzo Rose MD [address] [place], [place] [id number] Social History Tobacco Use Types Packs/Day Years [...] How often do you attend chur or jewish services? 1 to 4 times per year 01/12/2023 Do you belong to any clubs o r organizations such as confucianism groups, unions, fraternal or athletic groups, or [...] Health Questionnaire-2 Score 0 01/12/2023 [facility] - Occupational Stress [...] place to sleep or slept in a halfway (including now)? No 01/12/2023 Comments No Sex and Gender Information Value Date Recorded Sex Assigned at Not on file Legal Sex Female 6:41 PM EDT Gender Identity Not on file Sexual Orientation Not on file documented as of this encounter Plan of Treatment Upcoming Encounters Date Type Department Care Team (Late st Contact Info) Description 04/02/2025 10:30 AM EST Office Visit [facility] Family Medicine 112 [facility] 100 [place] [address] Lorenzo Rose MD 112 [facility] 100 [place] [address] documented as of this encounter Procedures Procedure Name Priority Date/Time Associated Diagnosis Comments NM JORGE ALBERTO PERF SPECT REST STR 02/27/2023 3:07 PM EST documented in this encounter Results * NM JORGE ALBERTO PERF SPECT REST STR (02/27/2023 3:07 PM EST) Anatomical Region Laterality Modality Other 02/27/2023 3:07 PM EST Narrative 02/27/2023 3:08 PM EST The [address] [address] Nuclear Medicine Report Signed Patient: FIONA RICHARDS MR#: [id number] : 1955 Acct:[id number] Age/Sex: 67 / F ADM Date: 02/27/23 Loc: [place] Attending Dr: LORENZO ROSE Ordering Physician: LORENZO ROSE Date of Service: 02/27/23 Procedure(s): NM jorge alberto perf SPECT rest str Accession Number(s): [id number] cc: LORENZO ORSE Patient Name: FIONA RICHARDS MR#: [id number] : 1955 Exam Date: 02/27/2023 Ordering Doctor: DR LORENZO ROSE . RADIOLOGY REPORT PROCEDURE: NM JORGE ALBERTO PERF SPECT REST STR COMPARISON: None. INDICATIONS: VENTRICULAR TACHYCARDIA, HYPERTENSION TECHNIQUE: Exam Description: Stress/Rest one day protocol gated SPECT Rest Imagin.3 mCi Tc-99m Cardiolite IV on 02/27/2023 Stress Imaging 30.8 mCi Tc-99m Cardiolite IV on 02/27/2023 Exercise Protocol: [place] Heart Rate (bpm): Rest: 60 Max: 141 PMHR: 92 Blood Pressure: Rest: 144/96 Max: 196/106 Exercise Time: Minutes: 6 Seconds: 00 Stage Reached: Stage: 2 Mets 7.0 Symptoms: Rest and peak stress ECG findings were abnormal and the exercise portion of the study was abnormal per attending physician Dr. Stephens due to EKG changes. For more details please see separate cardiac stress test report. FINDINGS: QUALITY OF STUDY: Good. PERFUSION DEFECT: None. LOCATION: N/A SIZE: N/A. SEVERITY: N/A. TYPE: N/A. WALL MOTION: Normal. LV SIZE: Normal. 71 mL. TID / TCD: None; 0.8 LVEF: Normal. Calculated EF 81%. SUMMARY: Myocardial perfusion imaging study is NORMAL. CONCLUSION: 1. Normal myocardial perfusion scan with no reversible ischemia 2. Abnormal exercise test secondary to EKG changes Dictated by: Joshua Adames MD on 02/27/2023 at 15:04 Approved by: Joshua Adames MD on 02/27/2023 at 15:07 Dictated By: Joshua Adames M.D. Signed By: 02/27/23 1508 DD/ 1507 TD/TT: Information Clerk Cashier: Procedure Note Radiology, Radiologist, - 02/27/2023 [place] [address] Nuclear Medicine Report Signed Patient: FIONA RICHARDS EMR#: [id number] : 6Acct:[id number] Age/Sex: 67 / FADM Date: 02/27/23 Loc: [place] Attending Dr: LORENZO ROSE Ordering Physician: LORENZO ROSE Date of Service: 02/27/23 Procedure(s): NM jorge alberto perf SPECT rest str Accession Number(s): [id number] cc: LORENZO ROSE Patient Name: FIONA RICHARDS MR#: [id number] : 1955 Exam Date: 02/27/2023 Ordering Doctor: DR LORENZO ROSE . RADIOLOGY REPORT PROCEDURE: NM JORGE ALBERTO PERF SPECT REST STR COMPARISON: None. INDICATIONS: VENTRICULAR TACHYCARDIA, HYPERTENSION TECHNIQUE: Exam Description: Stress/Rest one day protocol gated SPECT Rest Imagin.3 mCi Tc-99m Cardiolite IV on 02/27/2023 Stress Imaging 30.8 mCi Tc-99m Cardiolite IV on 02/27/2023 Exercise Protocol: [place] Heart Rate (bpm): Rest: 60 Max: 141 PMHR: 92 Blood Pressure: Rest: 144/96 Max: 196/106 Exercise Time: Minutes: 6 Seconds: 00 Stage Reached: Stage: 2 Mets 7.0 Symptoms: Rest and peak stress ECG findings were abnormal and the exercise portionof the study was abnormal per attending physician Dr. Stephens due to EKGchanges. For more details please see separate cardiac stress test report. FINDINGS: QUALITY OF STUDY: Good. PERFUSION DEFECT: None. LOCATION: N/A SIZE: N/A. SEVERITY: N/A. TYPE: N/A. WALL MOTION: Normal. LV SIZE: Normal. 71 mL. TID / TCD: None; 0.8 LVEF: Normal. Calculated EF 81%. SUMMARY: Myocardial perfusion imaging study is NORMAL. CONCLUSION: 1. Normal myocardial perfusion scan with no reversible ischemia 2. Abnormal exercise test secondary to EKG changes Dictated by: Joshua Adames MD on 02/27/2023 at 15:04 Approved by: Joshua Adames MD on 02/27/2023 at 15:07 Dictated By: Joshua Adames M.D. Signed By:02/27/23 1508 DD/ 1507 TD/TT: Information Clerk Cashier: Lorenzo Rose MD [facility] Final Resu lt documented in this encounter Visit Diagnoses Not on filedocumented in this encounter Additional Health Concerns Assessment Noted Time PHQ-9 Depression Total Score: 0 01/13/20 2:00 PM EDT documented as of this encounter Care Teams Exhaust And Muffler Repairer Relationship Specialty Start Date End Date Lorenzo Rose MD [address] [address] PCP - ACO Reach 08/11/22 Lorenzo Rose MD [address] [address] PCP - General Family Medicine 07/26/22 documented as of this encounter
--- OUTSIDE RECORDS SUMMARY | 2024-10-21 10:00 | XMS_ITS | Encounter Summary ---
Author Organization [facility] Address [address] [place] [address] Care Team Providers Care Nuclear Medicine Tech Name Role Phone Lorenzo Rose MD Unavailable [phone] Lorenzo Rose MD Primary Care Provider [phone] Encounter Details Date Type Department Care Team (Late Contact Info) Description 11/25/2022 Clinisync Result Encounter [facility] External Department Unsolicited Lorenzo Rose MD [address] [address] Social History Tobacco Use Types Packs/Day Years [...] Visit [facility] 112 [facility] 100 [place] [address] Lorenzo Rose MD 112 [facility] 100 [place] [address] documented as of this encounter Procedures Procedure Name Priority Date/Time Associated Diagnosis Comments CA ECHO DOPPLER COMPLETE 11/25/2022 5:57 PM EDT documented in this encounter Results * CA ECHO DOPPLER COMPLETE (11/25/2022 5:57 PM EDT) Anatomical Region Laterality Modality Other 11/25/2022 5:57 PM EDT Narrative 11/25/2022 5:57 [place] [address] Cardiology Report Signed Patient: FIONA RICHARDS MR#: [id number] : 1955 Acct:[id number] Age/Sex: 67 / F ADM Date: 11/25/22 Loc: CARD Attending Dr: LORENZO ROSE Ordering Physician: LORENZO ROSE Date of Service: 11/25/22 Procedure(s): CA echo doppler complete Accession Number(s): [id number] cc: Patient: FIONA RICHARDS. Exam Date: 11/25/2022 : 1955 Gender:F Ordering : DR LORENZO ROSE . Admission #: [id number] Family : Order #: [id number] CLICK HERE TO VIEW EXAM ECHOCARDIOGRAM REPORT PROCEDURE: CA ECHO DOPPLER COMPLETE INDICATIONS: Palpitations, hypertension, h/o rheumatic fever, heart murmur COMPARISON: None. DESCRIPTION: COMPLETE ECHOCARDIOGRAM Real-time transthoracic echocardiography with 2D, M-mode, spectral and color flow Doppler performed. QUALITY: Technical quality was good. LEFT VENTRICLE: Normal chamber size. Thickened septal wall. Normal systolic function. LV EF: Normal left ventricular ejection fraction, (>55%). DIASTOLIC: Grade I diastolic dysfunction. ATRIAL SEPTUM: Visually appears intact. LEFT ATRIUM: Mild dilatation. RIGHT ATRIUM: Normal chamber size. RIGHT VENTRICLE: Normal chamber size. Normal right ventricular systolic function. TRICUSPID VALVE: Normal mobility and thickness. No stenosis with mild regurgitation. Doppler studies reveal mildly (35-45) elevated right sided pressures. RVSP 35 mmHg MITRAL VALVE: Normal mobility and thickness. No evidence of mitral valve stenosis. Mild mitral annular calcification. Mild mitral regurgitation. AORTIC VALVE: Normal trileaflet appearance. No visible sclerosis. Normal leaflet mobility. No evidence of aortic valve stenosis. Trivial aortic regurgitation. AORTIC ROOT: Normal diameter and appearance. PULMONIC VALVE: Normal thickness and mobility. No stenosis. Trivial regurgitation. PERICARDIUM: No evidence of pericardial effusion. IVC: Collapses with inspirations. PLEURA: CONCLUSION: 1. Normal ventricular size and systolic function. LVEF is 55 to 60%. 2. Mild diastolic dysfunction. 3. No significant valvular dysfunction. 4. Mildly elevated right-sided pressures. Adult Echocardiography Procedure Report Left Ventricle LVEDD (3.7 - 5.6 cm): 4.22 cm LVESD (2.2 - 4.0 cm): 3.06 cm LVIVS thickness (0.6 - 1.2 cm): 1.08 cm LVPW thickness (0.5 - 1.0 cm): 0.94 cm e': 0.08 m/s E - e': 8.80 LVOT Max Gradient: 5.13 mm[Hg] LVOT Area (cm2): 1.13 m/s Peak Velocity (LVOT): 1.13 m/s Mean Velocity (LVOT): 0.72 m/s LVOT Diameter 2.21 cm Left Atrium LA Volume Index (2D A2C): 39.11 ml/m2 Left Atrium Systolic Dimension: 3.53 cm Mitral Valve MV E to A Ratio: 0.87 Mitral Valve A-Wave Peak Velocity: 0.78 m/s Mitral Valve E-Wave Peak Velocity: 0.68 m/s Right Ventricle Aorta AO Root Diam: 3.03 cm Ascending Ao Diam: 2.88 cm Aortic Valve AoV Area (Peak Matthieu): 3.10 cm2, 3.10 cm2 AoV Area (VTI): 3.36 cm2, 3.36 cm2 Peak Velocity(Antegrade Flow): 1.40 m/s Peak Gradient(Antegrade Flow): 7.86 mm[Hg] Mean Velocity(Antegrade Flow): 0.91 m/s Mean Gradient(Antegrade Flow): 3.84 mm[Hg] Velocity Time Integral: 28.97 cm Tricuspid Valve Peak Velocity (Regurgitant Flow): 2.84 m/s, 2.34 m/s, 2.67 m/s Pulmonic Valve Peak Velocity: 0.92 m/s Peak Gradient: 3.43 mm[Hg], 3.35 mm[Hg] Right Atrium Right Atrium Systolic Pressure: 33.63 ml, 33.63 ml Dictated by: Mily Tipton M.D. on 11/25/2022 at 17:55 Approved by: Mily Tipton M.D. on 11/25/2022 at 17:57 Dictated By: MILY TIPTON Signed By: 11/25/221757 DD/ 56 TD/TT: Towel Folder: Procedure Note Radiology, Radiologist, MD - 12/08/2022 [place] [address] Cardiology Report Signed Patient: FIONA RICHARDS EMR#: [id number] : 1955cct:[id number] Age/Sex: 67 / FADM Date: 11/25/22 Loc: CARD Attending Dr: LORENZO ROSE Ordering Physician: LORENZO ROSE Date of Service: 11/25/22 Procedure(s): CA echo doppler complete Accession Number(s): [id number] cc: Patient: FIONA RICHARDS Exam Date: 11/25/2022 : 1955 Gender:F Ordering : DR LORENZO ROSE . Admission #: [id number] Family : Order #: [id number] CLICK HERE TO VIEW EXAM ECHOCARDIOGRAM REPORT PROCEDURE: CA ECHO DOPPLER COMPLETE INDICATIONS: Palpitations, hypertension, h/o rheumatic fever, heartmurmur COMPARISON: None. DESCRIPTION: COMPLETE ECHOCARDIOGRAM Real-time transthoracic echocardiography with 2D, M-mode, spectral and color flow Dopplerperformed. QUALITY: Technical quality was good. LEFT VENTRICLE: Normal chamber size. Thickened septal wall. Normal systolic function. LV EF: Normal left ventricular ejection fraction, (>55%). DIASTOLIC: Grade I diastolic dysfunction. ATRIAL SEPTUM: Visually appears intact. LEFT ATRIUM: Mild dilatation. RIGHT ATRIUM: Normal chamber size. RIGHT VENTRICLE: Normal chamber size. Normal right ventricularsystolic function. TRICUSPID VALVE: Normal mobility and thickness. No stenosis with mild regurgitation. Doppler studies reveal mildly (35-45) elevated right sided pressures. RVSP 35 mmHg MITRAL VALVE: Normal mobility and thickness. No evidence of mitralvalve stenosis. Mild mitral annular calcification. Mild mitral regurgitation. AORTIC VALVE: Normal trileaflet appearance. No visible sclerosis.Normal leaflet mobility. No evidence of aortic valve stenosis. Trivial aortic regurgitation. AORTIC ROOT: Normal diameter and appearance. PULMONIC VALVE: Normal thickness and mobility. No stenosis. Trivial regurgitation. PERICARDIUM: No evidence of pericardial effusion. IVC: Collapses with inspirations. PLEURA: CONCLUSION: 1. Normal ventricular size and systolic function. LVEF is 55 to 60%. 2. Mild diastolic dysfunction. 3. No significant valvular dysfunction. 4. Mildly elevated right-sided pressures. Adult Echocardiography Procedure Report Left Ventricle LVEDD (3.7 - 5.6 cm): 4.22 cm LVESD (2.2 - 4.0 cm): 3.06 cm LVIVS thickness (0.6 - 1.2 cm): 1.08 cm LVPW thickness (0.5 - 1.0 cm): 0.94 cm e': 0.08 m/s E - e': 8.80 LVOT Max Gradient: 5.13 mm[Hg] LVOT Area (cm2): 1.13 m/s Peak Velocity (LVOT): 1.13 m/s Mean Velocity (LVOT): 0.72 m/s LVOT Diameter 2.21 cm Left Atrium LA Volume Index (2D A2C): 39.11 ml/m2 Left Atrium Systolic Dimension: 3.53 cm Mitral Valve MV E to A Ratio: 0.87 Mitral Valve A-Wave Peak Velocity: 0.78 m/s Mitral Valve E-Wave Peak Velocity: 0.68 m/s Right Ventricle Aorta AO Root Diam: 3.03 cm Ascending Ao Diam: 2.88 cm Aortic Valve AoV Area (Peak Matthieu): 3.10 cm2, 3.10 cm2 AoV Area (VTI): 3.36 cm2, 3.36 cm2 Peak Velocity(Antegrade Flow): 1.40 m/s Peak Gradient(Antegrade Flow): 7.86 mm[Hg] Mean Velocity(Antegrade Flow): 0.91 m/s Mean Gradient(Antegrade Flow): 3.84 mm[Hg] Velocity Time Integral: 28.97 cm Tricuspid Valve Peak Velocity (Regurgitant Flow): 2.84 m/s, 2.34 m/s, 2.67 m/s Pulmonic Valve Peak Velocity: 0.92 m/s Peak Gradient: 3.43 mm[Hg], 3.35 mm[Hg] Right Atrium Right Atrium Systolic Pressure: 33.63 ml, 33.63 ml Dictated by: Mily Tipton M.D. on 11/25/2022 at 17:55 Approved by: Mily Tipton M.D. on 11/25/2022 at 17:57 Dictated By: MILY TIPTON Signed By:11/25/221757 DD/ 56 TD/TT: Towel Folder: Lorenzo Rose MD [facility] Final Resu lt documented in this encounter Visit Diagnoses Not on filedocumented in this encounter Care Teams Nuclear Medicine Tech Relationship Specialty Start Date End Date Lorenzo Rose MD [address] [place] [address] [address] PCP - ACO Reach 08/11/22 Lorenzo Rose MD [address] [place] [address] PCP - General Family Medicine 07/26/22 documented as of this encounter
--- OUTSIDE RECORDS SUMMARY | 2024-10-21 10:00 | XMS_ITS | Encounter Summary ---
Author Organization [facility] Address [address] [place] [address] Care Team Providers Care Qc Chemist Name Role Phone Lorenzo Ellington MD Unavailable [phone] Lorenzo Ellington MD Primary Care Provider [phone] Encounter Details Date Type Department Care Team (Late Contact Info) Description 12/09/2022 Orders Only [facility] [place] [facility] Family Medicine [address] [facility] [place] [address] Lorenzo Ellington MD 112 [facility] 100 [place] [address] (Fax) Social History Tobacco Use Types Packs/Day Years [...] 10:30 AM EST Office Visit [facility] [place] [facility] Family Medicine 112 [facility] 100 [place] [address] Lorenzo Ellington MD 112 [facility] 100 [place] [address] documented as of this encounter Visit Diagnoses Not on filedocumented in this encounter Care Teams Qc Chemist Relationship Specialty Start Date End Date Lorenzo Ellington MD 112 [address] [place] [address] PCP - ACO Reach 08/11/22 Lorenzo Ellington MD [address] [address] PCP - General Family Medicine 07/26/22 documented as of this encounter
--- OUTSIDE RECORDS SUMMARY | 2024-10-21 10:00 | XMS_ITS | Encounter Summary ---
Author Organization [facility] Address [address] [place] [address] Care Team Providers Care Laborer Beam House Name Role Phone Lorenzo Ellington MD Unavailable [phone] Lorenzo Ellington MD Primary Care Provider [phone] Encounter Details Date Type Department Care Team (Late st Contact Info) Description 10/31/2023 Orders Only [facility] [address] [facility] 150 [place] [id number] Josh Cole DO 703 [facility] 150 [place] [address] Social History Tobacco Use Types Packs/Day Years [...] How often do you attend chur or adventism services? 1 to 4 times per year 01/12/2023 Do you belong to any clubs o r organizations such as jain groups, unions, fraternal or athletic groups, or [...] Recorded Patient Health Questionnaire-2 Score 0 01/12/2023 [facility] - [...] place to sleep or slept in a senior living (including now)? No 01/12/2023 Comments No Sex and Gender Information Value Date Recorded Sex Assigned at Not on file Legal Sex Female 6:41 PM EDT Gender Identity Not on file Sexual Orientation Not on file documented as of this encounter Plan of Treatment Upcoming Encounters Date Type Department Care Team (Late st Contact Info) Description 04/02/2025 10:30 AM EST Office Visit [facility] [place] [address] Family Medicine 112 [facility] 100 [place] [address] Lorenzo Ellington MD 112 [facility] 100 [place] [address] documented as of this encounter Procedures Procedure Name Priority Date/Time Associated Diagnosis Comments COLONOSCOPY Routine 10/31/2023 9:36 AM EDT documented in this encounter Results * Colonoscopy (10/31/2023 9:36 AM EDT) Anatomical Region Laterality Modality Endoscopy Josh Cole DO ENDOSCOPY PROCEDURE ORDER CHAY Final Result documented in this encounter Visit Diagnoses Not on filedocumented in this encounter Additional Health Concerns Assessment Noted Time PHQ-9 Depression Total Score: 0 01/13/20 2:00 PM EDT documented as of this encounter Care Teams Laborer Beam House Relationship Specialty Start Date End Date Lorenzo Ellington MD [address] [address] PCP - ACO Reach 08/11/22 Lorenzo Ellington MD [address] [address] PCP - General Family Medicine 07/26/22 documented as of this encounter
--- NOTE | 2024-10-21 10:01 | CA_ITS ---
Patient Name: FIONA DE LA PAZ MR#: [id number] : 1955 Exam Date: 10/21/2024 Ordering Doctor: DR GILBERT ROSE . ECHOCARDIOGRAM REPORT PROCEDURE: CA ECHO DOPPLER COMPLETE INDICATIONS: HTN, Pulm HTN, MR, AI, Murmur COMPARISON: None. DESCRIPTION: COMPLETE ECHOCARDIOGRAM Real-time transthoracic echocardiography with 2D, M-mode, spectral and color flow Doppler performed. QUALITY: Technical quality was good. LEFT VENTRICLE: Normal chamber size. Mild concentric hypertrophy. Global left ventricular systolic function is normal. LV EF: Estimated left ventricular ejection fraction is 65%. DIASTOLIC: Diastolic function is indeterminate. ATRIAL SEPTUM: LEFT ATRIUM: Moderate dilatation. RIGHT ATRIUM: Mild dilatation. RIGHT VENTRICLE: Normal chamber size. Normal right ventricular systolic function. TRICUSPID VALVE: Normal mobility and thickness. No stenosis with mild to moderate regurgitation. No evidence of pulmonary hypertension. RVSP 32 mmHg. MITRAL VALVE: Normal mobility and thickness. No evidence of mitral valve stenosis. There is no mitral annular calcification. Mild mitral regurgitation. AORTIC VALVE: Normal trileaflet appearance. No visible sclerosis. Normal leaflet mobility. No evidence of aortic valve stenosis. Trivial aortic regurgitation. AORTIC ROOT: Normal diameter and appearance, measuring 3.2 cm. The ascending aorta is normal in size measuring 2.7 cm. PULMONIC VALVE: Normal thickness and mobility. No stenosis. Trivial regurgitation. PERICARDIUM: No evidence of pericardial effusion. IVC: Collapses with inspiration. Mild dilatation measuring 2.3 cm. PLEURA: CONCLUSION: 1. Mild concentric ventricular hypertrophy with normal systolic function. LVEF is estimated at 65%. 2. Normal right ventricular size and systolic function. 3. Mild to moderate biatrial dilatation. 4. Mild mitral regurgitation. 5. Mild to moderate tricuspid regurgitation. 6. Normal right-sided pressures. Adult Echocardiography Procedure Report Left Ventricle LVEDD (3.7 - 5.6 cm): 4.77 cm LVESD (2.2 - 4.0 cm): 3.13 cm LVIVS thickness (0.6 - 1.2 cm): 1.24 cm LVPW thickness (0.5 - 1.0 cm): 0.92 cm e': 0.08 m/s E - e': 8.84 LVOT Max Gradient: 6.01 mm[Hg] LVOT Area (cm2): 1.23 m/s Peak Velocity (LVOT): 1.23 m/s Mean Velocity (LVOT): 0.81 m/s LVOT Diameter 1.77 cm Left Ventricular Ejection Fraction: 65 % Left Atrium LA Volume Index (2D A2C): 33.18 ml/m2 Left Atrium Systolic Dimension: 3.60 cm Mitral Valve MV E to A Ratio: 1.02 Mitral Valve A-Wave Peak Velocity: 0.72 m/s Mitral Valve E-Wave Peak Velocity: 0.74 m/s Right Ventricle RV Internal Diastolic Dimension: 3.28 cm Aorta AO Root Diam: 3.20 cm Ascending Ao Diam: 2.71 cm Aortic Valve AoV Area (Peak Matthieu): 2.14 cm2, 2.14 cm2 AoV Area (VTI): 2.04 cm2, 2.04 cm2 Peak Velocity(Antegrade Flow): 1.41 m/s Peak Gradient(Antegrade Flow): 7.91 mm[Hg] Mean Velocity(Antegrade Flow): 0.89 m/s Mean Gradient(Antegrade Flow): 3.76 mm[Hg] Velocity Time Integral: 32.43 cm Tricuspid Valve Peak Velocity (Regurgitant Flow): 2.37 m/s, 2.33 m/s, 2.43 m/s Pulmonic Valve Mean Gradient: 1.28 mm[Hg], 1.62 mm[Hg] Mean Velocity: 0.52 m/s, 0.60 m/s Peak Velocity: 0.77 m/s Peak Gradient: 2.16 mm[Hg], 2.66 mm[Hg] Right Atrium Right Atrium Systolic Pressure: 47.44 ml, 47.44 ml Dictated by: Giovanny Tipton M.D. on 10/21/2024 at 18:57 Approved by: Giovanny Tipton M.D. on 10/21/2024 at 19:04
--- OUTSIDE RECORDS SUMMARY | 2024-10-21 10:20 | XMS_ITS | CCD ---
Author Organization [facility] Care Team Providers Care 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 Name Role Phone Elaine Mercado Attending Unavailable RADHA COTTO Attending Unavailable LORENZO ROSE Admitting Unavailable LORENZO ROSE Attending Unavailable LORENZO ROSE Unavailable MD Lorenzo Rose Primary Care Provider MD Lorenzo Rose Attending Provider Lorenzo Rose MD Unavailable Lorenzo Rose MD Primary Care Provider [phone] MD Lorenzo Rose Primary Care Provider MD Lorenzo Rose Attending Provider Lorenzo Rose MD Unavailable Lorenzo Rose MD Primary Care Provider Lorenzo Rose MD Primary Care Provider Matthias Alcaraz MD Attending Provider [phone] Lorenzo Rose Admitting Unavailable Lorenzo Rose Attending Unavailable Lorenzo Rose Primary Care Unavailable Matthias Alcaraz II Attending UnavailMatthias Cruz II Admitting Unavailblanca e Lorenzo Rose Primary Care Unavailable LORENZO ROSE Attending Unavailable LORENZO ROSE Attending Unavailable JOSH COX Attending Unavailable LORENZO ROSE Referring Unavailable LORENZO ROSE Attending Unavailable LORENZO ROSE Attending Unavailable LORENZO ROSE Attending Unavailable LORENZO ROSE Attending Unavailable LORENZO ROSE Attending Unavailable Allergies Allergy Classification Reported Allergen(s) Allergy Type Date of Onset Reaction(s) Facility (1 source) Trinalin Repetabs Drug allergy (disorder) 2 [facility] Repository (20 sources) azatadine; Translations: [azatadine] Drug Allergy 1 Swelling of Lip/Tongue/Thro at [facility] (20 sources) Pseudoephedrine; Translations: [pseudoephedrine ] Drug Allergy 1 Swelling of Lip/Tongue/Thro at [facility] (20 sources) traMADol; Translations: [tramadol] Drug Allergy 1 Hives [facility] (15 sources) Cefuroxime Drug Allergy 3 [facility] (15 sources) Metoprolol Drug Allergy 4 Anxiety, Dizziness [facility] Medications Current Medications Medication Drug Class(es) Dates Sig (Normalized) Sig (Original) ALPRAZolam 0.25 mg oral tablet (15 sources) Benzodiazepine Start: 04-04-2023 take 1 tablet by mouth three times daily as needed for anxiety ALPRAZolam (Xanax) 0.25 MG tablet Indications: Situational mixed anxiety and depressive disorder Take 1 tablet (0.25 mg) by mouth 3 (three) times a day as needed for anxiety for up to 7 days 21 tablet 04/04/2023 Active calcium carbonate 1500 mg / cholecalciferol 800 unt chewable tablet (10 sources) Vitamin D Start: 05-23-2019 take 1 tablet by mouth twice daily Calcium Carbonate-Vitamin D3 (Caltrate 600 Plus D) 600 mg (1,500 mg)-800 unit Tablet,Chewable Active 1 TAB PO Twice daily May 23, 2019 1:00am Start: 06-13-2017 End: 05-24-2018 take 1 tablet by mouth twice daily Calcium Carbonate-Vitamin D3 (Calcium 600 + D(3)) 600 mg(1,500mg) -200 unit Tablet Discontinued 1 TAB PO Twice daily 180 June 13, 2017 12:00am May 24, 2018 12:05pm citalopram 20 mg oral tablet (19 sources) Serotonin Reuptake Inhibitor Start: 05-14-2024 End: 11-10-2024 take 1 tablet by mouth once daily citalopram (CeleXA) 20 MG tablet Indications: MONTSERRAT (generalized anxiety disorder) Take 1 tablet (20 mg) by mouth Daily 90 tablet 1 05/14/2024 10/01/2024 Discontinued (Therapy completed) Start: 09-11-2023 End: 05-06-2024 take 1 tablet by mouth once daily citalopram (CeleXA) 20 MG tablet Indications: MONTSERRAT (generalized anxiety disorder) (CMS/HCC) Take 1 tablet (20 mg) by mouth Daily 90 tablet 1 11/08/2023 Active Diclofenac (2 sources) Nonsteroidal Anti-inflammatory Drug Start: 06-10-2024 Diclofenac Sodium 1 % gel Active 2 GM TOPICAL .4-5 times a day as needed for knee pain 04 18June 10, 2024 12:00am losartan potassium 100 mg oral tablet (20 sources) Angiotensin 2 Receptor Edwar Start: 07-02-2024 End: 03-23-2025 take 1 tablet by mouth once daily losartan (Cozaar) 100 MG tablet Indications: Primary hypertension Take 1 tablet (100 mg) by mouth Daily 90 tablet 1 09/24/2024 03/23/2025 Active Start: 05-07-2024 End: 11-03-2024 take 1 tablet by mouth once daily losartan (Cozaar) 50 MG tablet Indications: Primary hypertension (CMS/HCC) Take 1 tablet (50 mg) by mouth Daily 90 tablet 1 05/07/2024 11/03/2024 Active Start: 11-01-2023 End: 04-29-2024 take 1 tablet by mouth once daily losartan (Cozaar) 50 MG tablet Indications: Primary hypertension (CMS/HCC) Take 1 tablet (50 mg) by mouth Daily 90 tablet 1 11/01/2023 04/29/2024 Active Start: 05-23-2019 take 1 tablet by ryan once daily Losartan 25 mg Tablet Active 25 MG PO Daily May 23, 2019 1:00am pramoxine hydrochloride 10 m g/ml rectal foam (10 sources) Start: 05-23-2022 pramoxine (Pro ctofoam) 1 % foam Insert 1 application into the rectum 2 (two) times a day as needed. 05/23/2022 Active Completed/Discontinued Medications Medication Drug Class(es) Dates Sig (Normalized) Sig (Original) anastrozole 1 mg oral tablet (15 sources) Aromatase Inhibitor Start: End: take 1 tablet by mouth once daily Anastrozole 1 mg Tablet Discontinued 1 MG PO Daily 30 May 23, 2019 1:00am May 28, 2020 3:46pm 1 ml methylPREDNISolone acetate 80 mg/ml injection (6 sources) Corticosteroid Start: End: methylPREDNISolone acetate (DEPO-Medrol) injection 80 mg Start: 09-10-2024 End: 09-10-2024 80 mg, Intra-articular, Once , On Mon09/10/24 at 0000, For 1 dose Start: 01-08-2024 End: 12-21-2023 methylPREDNISolone acetate ( DEPO-Medrol) injection 80 mg Start: 01-08-2024 End: 12-21-2023 80 mg, Injection, Once, On M on 01/08/24 at 0730, For 1 dose Start: 01-08-2024 End: 12-21-2023 methylPREDNISolone acetate ( DEPO-Medrol) injection 80 mg Start: 01-08-2024 End: 12-21-2023 80 mg, Injection, Once, On M on 01/08/24 at 0730, For 1 dose naproxen sodium 220 mg oral capsule (5 sources) Nonsteroidal Anti-inflammatory Drug Start: 05-04-2017 End: 05-24-2018 take 1 capsule by mouth once daily Naproxen Sodium (Aleve) 220 mg Capsule Discontinued 220 MG PO Daily May 04, 2017 1:00am May 24, 2018 12:05pm nebivolol 10 mg oral tablet (20 sources) Start: 06-29-2023 End: 03-23-2025 take 1 tablet by mouth once daily nebivolol (Bystolic) 10 MG tablet Indications: Primary hypertension Take 1 tablet (10 mg) by mouth Daily Pt using good rx instead insurance 90 tablet 1 05/14/2024 09/24/2024 Discontinued (Reorder) PARoxetine hydrochloride 10 mg oral tablet (5 sources) Serotonin Reuptake Inhibitor Start: 05-03-2017 End: 06-10-2024 take 1 tablet by mouth twice daily Paroxetine Hcl 10 mg Tablet Discontinued 10 MG PO Twice daily May 03, 2017 1:00am June 10, 2024 12:33pm predniSONE 10 mg oral tablet (5 sources) Start: 11-22-2023 End: 12-21-2023 predniSONE (Deltasone) 10 MG tablet Indications: Lumbar back pain with radiculopathy affecting left lower extremity Every 2 day tapering dose; 5,5,4,4,3,3,2,2,1, 1,0.5,0.5 31 tablet 11/22/2023 12/21/2023 Discontinued Problems Active Problems Problem Classification Problem Date Documented Date Episodic/Chronic Anxiety disorders (19 sources) Generalized anxiety disorder; Translations: [Generalized anxiety disorder] Onset: 10-23-2023 10-23-2023 Chronic Cancer of breast (5 sources) Malignant neoplasm of female breast; Translations: [Malignant neoplasm of unspecified site of left female breast] 06-13-2017 Chronic Cardiac dysrhythmias (15 sources) Nonsustained ventricular tachycardia ; Translations: [Nonsustained ventricular tachycardia] Onset: 06-21-2023 06-21-2023 Chronic Diverticulosis and diverticulitis (15 sources) Diverticulum of large intestine without hemorrhage; Translations: [Diverticulosis of large intestine without perforation or abscess without bleeding] Onset: 11-10-2022 11-10-2022 Chronic Essential hypertension (20 sources) Essential hypertension; Translations: [Essential (primary) hypertension] Onset: 11-10-2022 11-10-2022 Chronic Heart valve disorders (20 sources) Non-rheumatic mitral regurgitation ; Translations: [Nonrheumatic mitral (valve) insufficiency] Onset: 11-10-2022 06-21-2023 Chronic Heart valve disorders (19 sources) Heart murmur; Translations: [Cardiac murmur, unspecified] Onset: 11-10-2022 11-10-2022 Episodic Osteoarthritis (20 sources) Degenerative joint disease involving multiple joints; Translations: [Polyosteoarthritis, unspecified] Onset: 11-10-2022 11-10-2022 Chronic Other connective tissue disease (15 sources) Artificial knee joint present; Translations: [Presence of left artificial knee joint] Onset: 11-10-2022 11-10-2022 Chronic Other non-traumatic joint disorders (4 sources) Pain in right knee; Translations: [Pain in joint, lower leg] Onset: 06-10-2024 01-08-2024 Episodic Other nutritional; endocrine; and metabolic disorders (7 sources) Body mass index 25-29 - overweight; Translations: [Overweight] Onset: 09-11-2024 09-11-2024 Episodic Other screening for suspected conditions (not mental disorders or infectious disease) (20 sources) Patient encounter status; Translations: [Encounter for screening for osteoporosis] Onset: 01-13-2023 Resolved: 09-10-2024 06-13-2017 Episodic Pulmonary heart disease (19 sources) Pulmonary hypertension; Translations: [Pulmonary hypertension, unspecified] Onset: 06-21-2023 06-21-2023 Chronic Past or Other Problems Problem Classification Problem Date Documented Date Episodic/Chronic Adjustment disorders (15 sources) Mixed anxiety and depressive disorder; Translations: [Adjustment disorder with mixed anxiety and depressed mood] Onset: 10-23-2023 Resolved: 05-29-2024 10-23-2023 Chronic Cancer of breast (4 sources) History of invasive malignant neoplasm of breast; Translations: [Personal history of malignant neoplasm of breast] Onset: 06-05-2024 06-05-2024 Episodic Mood disorders (15 sources) Mood disorders Onset: 01-12-2023 01-12-2023 Noninfectious gastroenteritis (15 sources) Lymphocytic colitis; Translations: [Other and unspecified noninfectious gastroenteritis and colitis] Onset: 11-10-2022 Resolved: 11-08-2023 11-08-2023 Chronic Other aftercare (17 sources) Polypharmacy ; Translations: [Other prison (current) drug therapy] Onset: 10-23-2023 Resolved: 05-14-2024 10-23-2023 Episodic Other circulatory disease (15 sources) H/O: rheumatic fever; Translations: [Personal history of other diseases of the circulatory system] Onset: 11-20-2022 11-20-2022 Episodic Spondylosis; intervertebral disc disorders; other back problems (2 sources) Lumbar radiculopathy; Translations: [Radiculopathy, lumbar region] 11-22-2023 Episodic Results Test Name Value Interpretation Reference Range Facil ity X-ray reportOrdered By: Jose Townsend on 06-10-2024 Study report [facility] [address] [place] [address] XRay Report Signed Patient: Ruth Richards MR#: [id number] : 1955 Acct:[id number] Age/Sex: 68 / F ADM Date: 5 Loc: SOXD Room: Type: REG CLI Attending Dr: Matthias Alcaraz II, MD Copies to: Matthias Alcaraz MD~ Ordering Provider: Matthias Alcaraz MD Date of Service: 06/10/24 XR/XR knee RT 4V*: M25.561 - Pain in right knee ([id number]) XR/XR pelvis 1-2V: M25.561 - Pain in right knee 4 views right knee plain film COMPARISON: None HISTORY: Chronic right knee pain since starting insidiously. Increasing instability ACUTE FINDINGS: No acute findings DEGENERATIVE CHANGE: [id number] contact medial degeneration. Extensive patellofemoral degeneration SOFT TISSUE FINDINGS: Unremarkable JOINT EFFUSION: None POSTOP CHANGES: None BONE MINERALIZATION: Adequate XR/XR knee RT 4V* IMPRESSION: Extensive medial patellofemoral degeneration Single view pelvis Moderate left hip with degeneration. Mild right hip degeneration. Mild bilateral SI joint degeneration. Mild lumbar degeneration scoliosis. Adequate alignment. No acute displaced fracture. IMPRESSION: Degenerative change. Impression dictated by: Hans Townsend M.D.06/10/2024 5:01 PM Dictation Location: [place] [address] Transcribed By: [facility] 06/10/24 170 Dictated By: Hans Townsend DO 06/10/24 1658 Signed By: 06/10/24 1701 [facility] XR pelvis 1-2Von 06-10-2024 XR pelvis 1-2V [facility] [address] [place] [address] XRay Report Signed Patient: Ruth Richards MR#: [id number] 92 : 1955 Acct:[id number] Age/Sex: 68 / F ADM Date: 06/10/24 Loc: SOXD Room: Type: REG CLI Attending Dr: Matthias Alcaraz II, MD Copies to: Matthias Alcaraz MD Ordering Provider: Matthias Alcaraz MD Date of Service: 06/10/24 XR/XR knee RT 4V*: M25.561 - Pain in right knee ([id number]) XR/XR pelvis 1-2V: M25.561 - Pain in right knee 4 views right knee plain film COMPARISON: None HISTORY: Chronic right knee pain since starting insidiously. Increasing instability ACUTE FINDINGS: No acute findings DEGENERATIVE CHANGE: Fhko-[id number] contact medial degeneration. Extensive patellofemoral degeneration SOFT TISSUE FINDINGS: Unremarkable JOINT EFFUSION: None POSTOP CHANGES: None BONE MINERALIZATION: Adequate XR/XR knee RT 4V* IMPRESSION: Extensive medial patellofemoral degeneration Single view pelvis Moderate left hip with degeneration. Mild right hip degeneration. Mild bilateral SI joint degeneration. Mild lumbar degeneration scoliosis. Adequate alignment. No acute displaced fracture. IMPRESSION: Degenerative change. Impression dictated by: Hans Townsend M.D.06/10/2024 5:01 PM Dictation Location: [place] [address] Transcribed By: [facility] 06/10/24 170 Dictated By: Hans Townsend DO 06/10/24 1658 Signed By: 06/10/24 1701 Normal [facility] MM screening mammo BI w/CADo n 12-25-2023 MM screening mammo BI w/CAD [facility] [place] [address] [place] [address] Mammography Report Signed Patient: Ruth Richards MR#: [id number] 92 : 1955 Acct:[id number] Age/Sex: 68 / F ADM Date: 12/25/23 Loc: ID Room: Type: [facility] Attending Dr: Lorenzo Rose MD Copies to: Lorenzo Rose MD Ordering Provider: Lorenzo Rose MD Date of Service: 12/25/23 MM/MM screening mammo BI w/CAD: SCREENING CLINICAL DATA: Screening for malignancy. History of left-sided breast cancer status post lumpectomy in 2015. SCREENING MAMMOGRAM - FULL FIELD DIGITAL WITH TOMOSYNTHESIS AND CAD COMPARISON:Mammogram s dating back to 2020 Tomosynthesis craniocaudal and [...] Salcedo Jr., D.ODanitza12/25/2023 3:39 PM Dictation Location: [facility] Transcribed By: [facility] 12/25/231538 Dictated By: Kevin Salcedo Jr, DO 12/25/231537 Signed By: 12/25/231538 Normal [facility] CBC AUTO DIFFon 11-06-2018 Basophils (Bld) [#/Vol] 0.1 103/ul Normal 0.0-0.1 [facility] Comment on above: Performed By: #### C BC #### [facility] [address] [place], [place] [phone] Markie Shama Basophils/100 WBC (Bld) 0.5 % Normal 0.2-2.0 [facility] Comment on above: Performed By: #### C BC #### [facility] [address] [place] [address] Markie Shama Eosinophils (Bld) [#/Vol] 0.3 103/ul Normal 0.0-0.7 [facility] Comment on above: Performed By: #### C BC #### [facility] [address] [place], [place] [phone] Markie Shama Eosinophils/100 WBC (Bld) 3.6 % Normal 0.9-7.0 [facility] Comment on above: Performed By: #### C BC #### [facility] [address] [place] [address] Markie Shama Erythrocyte distribution width (RBC) [Ratio] 13.2 % Normal 11.0-15.0 [facility] Comment on above: Performed By: #### C BC #### [facility] [address] [place] [address] Markie Shama Hematocrit (Bld) [Volume fraction] 38.4 % Normal 36.0-48.0 [facility] Comment on above: Performed By: #### C BC #### [facility] [address] [place] [address] Markie Shama Hemoglobin (Bld) [Mass/Vol] 12.8 g/dL Normal 12.0-16.0 [facility] Comment on above: Performed By: #### C BC #### [facility] [address] [place] [address] Markie Shama IG # 0.02 10e3/ul Normal 0.00-0.03 [facility] Comment on above: Performed By: #### C BC #### [facility] [address] [place] [address] Markie Shama IG % 0.2 % Normal 0.0-0.5 [facility] Comment on above: Performed By: #### C BC #### [facility] [address] [place] [address] Markie Shama Lymphocytes (Bld) [#/Vol] 2.5 103/ul Normal 1.2-3.8 [facility] Comment on above: Performed By: #### C BC #### [facility] [address] [place] [address] Markie Shama Lymphocytes/100 WBC (Bld) 26.8 % Normal 20.5-60.0 [facility] Comment on above: Performed By: #### C BC #### [facility] [address] [place], [place] [phone] Markieeber Ramiresen MANUAL DIFF REQ NO Normal [facility] Comment on above: Performed By: #### C BC #### [facility] [address] [place], [place] [phone] Markie Shama MCH (RBC) [Entitic mass] 30.0 pg Normal 26.7-34.0 [facility] Comment on above: Performed By: #### C BC #### [facility] [address] [place] [address] Markie Shama MCHC (RBC) [Mass/Vol] 33.3 g/dL Normal 29.9-35.2 [facility] Comment on above: Performed By: #### C BC #### [facility] [address] [place], [place] [address] Markie Shama MCV (RBC) [Entitic vol] 90.1 fL Normal 81.0-99.0 [facility] Comment on above: Performed By: #### C BC #### [facility] [address] [place], [place] [address] Markie Shama Monocytes (Bld) [#/Vol] 0.7 103/ul Normal 0.3-0.8 [facility] Comment on above: Performed By: #### C BC #### [facility] [address] [place], [place] [address] Markie Shama Monocytes/100 WBC (Bld) 7.0 % Normal 1.7-12.0 [facility] Comment on above: Performed By: #### C BC #### [facility] [address] [place] [address] Markie Shama Neutrophils (Bld) [#/Vol] 5.8 103/ul Normal 1.4-6.5 [facility] Comment on above: Performed By: #### C BC #### [facility] [address] [place] [address] Markie Shama Neutrophils/100 WBC (Bld) 61.9 % Normal 43.0-75.0 [facility] Comment on above: Performed By: #### C BC #### [facility] [address] [place] [address] Markie Shama Platelet mean volume (Bld) [Entitic vol] 9.3 fL Critically low 9.5-13.5 [facility] Comment on above: Performed By: #### C BC #### [facility] [address] [place] [address] Markie Shama Platelets (Bld) [#/Vol] 367 103/ul Normal 150-450 [facility] Comment on above: Performed By: #### C BC #### [facility] [address] [place], [place] [address] Markie Shama RBC (Bld) [#/Vol] 4.26 106/ul Normal 4.20-5.40 [facility] Comment on above: Performed By: #### C BC #### [facility] [address] [place], [place] [address] Markie Shama WBC (Bld) [#/Vol] 9.4 103/ul Normal 4.0-11.0 [facility] Comment on above: Performed By: #### C BC #### [facility] [address] [place], [place] [address] Markie Shama LIPID PROFILEon 11-06-2018 CHOL-HDL RATIO NORM SEE BELOW Normal [facility] Comment on above: Result Comment: 3.3 - 4.4 LOW RISK 4.4 - 7.1 AVERAGE RISK 7.1 - 11.0 MODERATE RISK >11.0 HIGH RISK Performed By: #### L IPID, CMP #### [facility] [address] [place] [address] Markie Shama Cholesterol [Mass/Vol] 231 mg/dL Critically high <=200 [facility] Comment on above: Performed By: #### L IPID, CMP #### [facility] [address] [place] [address] Markie Shama Cholesterol in HDL [Mass/Vol] > or = 60 mg/dl - LOW CARDIOVASCULAR RISK <40 mg/dl - HIGH CARDIOVASCULAR RISK Normal [facility] Comment on above: Performed By: #### L IPID, CMP #### [facility] [address] [place] [address] Markie Shama Cholesterol in HDL [Mass/Vol] 74 mg/dL Normal [facility] Comment on above: Performed By: #### L IPID, CMP #### [facility] [address] [place] [address] Markie Shama Cholesterol in LDL [Mass/Vol] SEE BELOW Normal [facility] Comment on above: Result Comment: <100 mg/dl OPTIMAL 100 - 129 mg/dl NEAR OR ABOVE OPTIMAL 130 - 159 mg/dl BORDERLINE HIGH 160 - 189 mg/dl HIGH >190 mg/dl VERY HIGH Performed By: #### L IPID, CMP #### [facility] [address] [place] [address] Markie Shama Cholesterol in LDL [Mass/Vol] 132.4 mg/dL Normal [facility] Comment on above: Performed By: #### L IPERICK, CMP #### [facility] [address] [place] [phone] Markie Shama Cholesterol.total/C holesterol in HDL [Mass ratio] 3.1 {ratio} Normal [facility] Comment on above: Performed By: #### L IPID, CMP #### [facility] [address] [place] [address] Markie Shama Triglyceride [Mass/Vol] 123 mg/dL Normal <=150 [facility] Comment on above: Performed By: #### L IPERICK, CMP #### [facility] [address] [place] [address] Markie Shama VLDL CALC 24.6 mg/dL Normal [facility] Comment on above: Performed By: #### L CHING, CMP #### [facility] [address] [place], [place] [phone] Markie Shama PROF 14(COMP METB)on 019 Albumin [Mass/Vol] 3.7 g/dL Normal 3.5-5.0 [facility] Comment on above: Performed By: #### L IPERICK, CMP #### [facility] [address] [place] [address] Markie Shama Albumin/Globulin [Mass ratio] 0.9 {ratio} Normal [facility] Comment on above: Performed By: #### L IPID, CMP #### [facility] [address] [place], [place] [phone] Markie Shama ALP [Catalytic activity/Vol] 81 U/L Normal 38-126 [facility] Comment on above: Performed By: #### L IPID, CMP #### [facility] [address] [place] [address] Markie Shama ALT [Catalytic activity/Vol] 18 U/L Normal 9-52 [facility] Comment on above: Performed By: #### L IPERICK, CMP #### [facility] [address] [place], [place] [phone] Markie Shama Anion gap [Moles/Vol] 11.7 mmol/L Normal [facility] Comment on above: Performed By: #### L IPID, CMP #### [facility] [address] [place] [address] Markie Shama AST [Catalytic activity/Vol] 14 U/L Normal 14-36 [facility] Comment on above: Performed By: #### L IPID, CMP #### [facility] [address] [place] [address] Markie Shama Bilirubin Ql (U) 0.2 mg/dL Normal 0.2-1.3 [facility] Comment on above: Performed By: #### L IPID, CMP #### [facility] [address] [place] [address] Markie Shama Calcium [Mass/Vol] 9.5 mg/dL Normal 8.4-10.2 [facility] Comment on above: Performed By: #### L IPID, CMP #### [facility] [address] [place] [address] Markie Shama Chloride [Moles/Vol] 104 mmol/L Normal 98-107 [facility] Comment on above: Performed By: #### L IPID, CMP #### [facility] [address] [place] [address] Markie Shama CO2 [Moles/Vol] 27.3 mmol/L Normal 22.0-30.0 [facility] Comment on above: Performed By: #### L IPID, CMP #### [facility] [address] [place] [address] Markie Hsama Creatinine [Mass/Vol] 0.77 mg/dL Normal 0.52-1.04 [facility] Comment on above: Performed By: #### L IPID, CMP #### [facility] [address] [place] [address] Markie Shama EGFR-AF [place] >60 Normal >=60 [facility] Comment on above: Performed By: #### L IPID, CMP #### [facility] [address] [place], [place] [address] Markie Shama EGFR-NON AF [place] >60 Normal >=60 [facility] Comment on above: Performed By: #### L IPID, CMP #### [facility] [address] [place], [place] [id number] Markie Shama Globulin (S) [Mass/Vol] 4.1 g/dL Normal [facility] Comment on above: Performed By: #### L IPID, CMP #### [facility] [address] [place] [address] Markie Shama Glucose [Mass/Vol] 86 mg/dL Normal 74-106 [facility] Comment on above: Performed By: #### L IPID, CMP #### [facility] [address] [place] [address] Markie Shama Potassium [Moles/Vol] 4.0 mmol/L Normal 3.4-5.0 [facility] Comment on above: Performed By: #### L IPID, CMP #### [facility] [address] [place] [address] Markie Shama Protein [Mass/Vol] 7.8 g/dL Normal 6.1-8.2 [facility] Comment on above: Performed By: #### L IPID, CMP #### [facility] [address] [place], [place] [id number] Markie Shama Sodium [Moles/Vol] 139 mmol/L Normal 137-145 [facility] Comment on above: Performed By: #### L IPID, CMP #### [facility] [address] [place], [place] [id number] Markie Shama Urea nitrogen [Mass/Vol] 17.0 mg/dL Normal 7.0-17.0 [facility] Comment on above: Performed By: #### L IPID, CMP #### [facility] [address] [place], [place] [id number] Markie Shama Urea nitrogen/Creatinine [Mass ratio] 22.1 mg/mg Normal [facility] Comment on above: Performed By: #### L IPID, CMP #### [facility] [address] [place], [place] [id number] Markie Shama Vital Signs Date Time Vital Sign Value Performing Clinician Brittani alba 09-24-2024 09:05-0400 Body height 167.6 cm Lorenzo Rose MD Work Phone: [facility] 09-24-2024 09:05-0400 Body mass index (BMI) [Ratio] 27.76 kg/m2 Lorenzo Rose MD Work Phone: [facility] 09-24-2024 09:05-0400 Body weight 78.02 kg Lorenzo Rose MD Work Phone: [facility] 09-24-2024 09:05-0400 Diastolic blood pressure 76 mm[Hg] Lorenzo Rose MD Work Phone: [facility] 09-24-2024 09:05-0400 Heart rate 51 /min Lorenzo Rose MD Work Phone: [facility] 09-24-2024 09:05-0400 SaO2% (BldA) [Mass fraction] 98 % Lorenzo Rose MD Work Phone: [facility] 09-24-2024 09:05-0400 Systolic blood pressure 128 mm[Hg] Lorenzo Rose MD Work Phone: [facility] 09-11-2024 13:56-0400 Body height 167.6 cm Lorenzo Rose MD Work Phone: [facility] 09-11-2024 13:56-0400 Body mass index (BMI) [Ratio] 26.76 kg/m2 Lorenzo Rose MD Work Phone: [facility] 09-11-2024 13:56-0400 Body weight 75.21 kg Lorenzo Rose MD Work Phone: [facility] 06-10-2024 12:30-0400 Body height 167.64 cm Lorenzo Rose MD Work Phone: [facility] 06-10-2024 12:30-0400 Body mass index (BMI) [Ratio] 26.6 kg/m2 Lorenzo Rose MD Work Phone: [facility] 06-10-2024 12:30-0400 Body weight 74.84 kg Lorenzo Rose MD Work Phone: [facility] 12-21-2023 15:31-0400 Body height 167.6 cm Lorenzo oRse MD Work Phone: [facility] 12-21-2023 15:31-0400 Body mass index (BMI) [Ratio] 23.4 kg/m2 Lorenzo Rose MD Work Phone: [facility] 12-21-2023 15:31-0400 Body weight 65.77 kg Lorenzo Rose MD Work Phone: [facility] 11-22-2023 08:28-0400 Body height 167.6 cm Lorenzo Rose MD Work Phone: [facility] 11-22-2023 08:28-0400 Body mass index (BMI) [Ratio] 23.4 kg/m2 Lorenzo Rose MD Work Phone: [facility] 11-22-2023 08:28-0400 Body weight 65.77 kg Lorenzo Rose MD Work Phone: [facility] 11-22-2023 08:28-0400 Heart rate 48 /min Lorenzo Rose MD Work Phone: [facility] 11-22-2023 08:28-0400 SaO2% (BldA) [Mass fraction] 98 % Lorenzo Rose MD Work Phone: [facility] 11-08-2023 09:53-0400 Body height 167.6 cm Lorenzo Rose MD Work Phone: [facility] 11-08-2023 09:53-0400 Body mass index (BMI) [Ratio] 23.4 kg/m2 Lorenzo Rose MD Work Phone: [facility] 11-08-2023 09:53-0400 Body weight 65.77 kg Lorenzo Rose MD Work Phone: [facility] 11-08-2023 09:53-0400 Diastolic blood pressure 74 mm[Hg] Lorenzo Rose MD Work Phone: [facility] 11-08-2023 09:53-0400 Heart rate 48 /min Lorenzo Rose MD Work Phone: [facility] 11-08-2023 09:53-0400 SaO2% (BldA) [Mass fraction] 98 % Lorenzo Rose MD Work Phone: [facility] 11-08-2023 09:53-0400 Systolic blood pressure 124 mm[Hg] Lorenzo Rose MD Work Phone: [facility] Encounters Encounter Date Encounter Type Care Provider Facility Start: 09-24-2024 End: 09-24-2024 Bamboo flowsheet Lorenzo Rose MD Work Phone: [facility] Start: 09-24-2024 End: 09-24-2024 Bamboo flowsheet Lorenzo Rose MD Work Phone: [facility] Start: 09-24-2024 End: 09-24-2024 ambulatory LORENZO ROSE Not Available Start: 09-24-2024 End: 09-24-2024 Office outpatient visit 25 minutes Lorenzo Rose MD Work Phone: [facility] Comment on above: Primary hypertension ; MONTSERRAT (generalized anxiety disorder) ; Overweight (BMI 25.0-29.9); Screening for diabetes mellitus (DM); Encounter for lipid screening for cardiovascular disease; Nonrheumatic mitral valve regurgitation; Rheumatic aortic valve insufficiency; Heart murmur; Pulmonary hypertension (HCC) Start: 09-11-2024 End: 09-11-2024 Patient encounter procedure Lorenzo Rose MD Work Phone: [facility] Comment on above: Chronic pain of righ t knee (Primary Dx); Primary osteoarthritis of right knee; Overweight (BMI 25.0-29.9) Start: 09-11-2024 End: 09-11-2024 ambulatory LORENZO ROSE Not Available Start: 06-10-2024 End: 06-10-2024 Patient encounter procedure Lorenzo Rose MD [facility] Phone[facility] Work Phone: Start: 06-10-2024 End: 06-10-2024 ambulatory Lorenzo Rose MD Work Phone: [facility] Work Phone: Start: 05-29-2024 End: 05-29-2024 ambulatory LORENZO ROSE Not Available Start: 05-14-2024 End: 05-14-2024 ambulatory LORENZO ROSE Not Available Start: 05-14-2024 End: 05-14-2024 Bamboo flowsheet Lorenzo Rose MD Work Phone: [facility] Start: 05-14-2024 End: 05-14-2024 Bamboo flowsheet Lorenzo Rose MD Work Phone: [facility] Start: 04-25-2024 End: 04-25-2024 Refill Lorenzo Rose MD Work Phone: [facility] Comment on above: Primary hypertension (CMS/HCC) Start: 12-25-2023 End: 12-25-2023 Patient encounter procedure MD Lorenzo Rose Work Phone: [facility] Work Phone: Start: 12-25-2023 End: 12-25-2023 ambulatory MD Lorenzo Rose Work Phone: [facility] Work Phone: Start: 12-21-2023 End: 12-21-2023 Office outpatient visit 10 minutes Lorenzo Rose MD Work Phone: [facility] Comment on above: Primary osteoarthrit is of right knee (Primary Dx); Chronic pain of right knee Start: 12-21-2023 End: 12-21-2023 ambulatory LORENZO ROSE Not Available Start: 12-21-2023 End: 12-21-2023 Bamboo flowsheet Lorenzo Rose MD Work Phone: [facility] Start: 12-21-2023 End: 12-21-2023 Bamboo avila Rose MD Work Phone: [facility] Start: 11-22-2023 End: 11-22-2023 Bamboo flowsheet Lorenzo Rose MD Work Phone: [facility] Start: 11-22-2023 End: 11-22-2023 Bamboo flowsheet Lorenzo Rose MD Work Phone: [facility] Start: 11-22-2023 End: 11-22-2023 Office outpatient visit 25 minutes Lorenzo Rose MD Work Phone: [facility] Comment on above: Lumbar back pain wit h radiculopathy affecting left lower extremity (Primary Dx); Primary osteoarthritis of right knee Start: 11-22-2023 End: 11-22-2023 ambulatory LORENZO ROSE Not Available Start: 11-08-2023 End: 11-08-2023 Bamboo flowslalito Rose MD Work Phone: [facility] Start: 11-08-2023 End: 11-08-2023 Freyao avila Rose MD Work Phone: [facility] Start: 11-08-2023 End: 11-08-2023 Office outpatient visit 25 minutes Lorenzo Rose MD Work Phone: [facility] Comment on above: MONTSERRAT (generalized anx iety disorder) (CMS/HCC) (Primary Dx); Primary hypertension (CMS/HCC); Polypharmacy; Screening for lipid disorders Start: 11-08-2023 End: 11-08-2023 ambulatory LORENZO ROSE Not Available Start: 10-09-2023 End: 10-09-2023 ambulatory JOSH COX Not Available Start: 12-14-2021 End: 12-14-2021 ambulatory MD Lorenzo Rose Work Phone: [facility] Work Phone: Start: 12-14-2021 End: 12-14-2021 Patient encounter procedure MD Lorenzo Rose Work Phone: [facility] Start: 11-06-2018 End: 11-07-2018 Patient encounter procedure LORENZO ROSE Facility:[facility]1 Start: 05-24-2018 Patient encounter procedure RADHA COTTO Facility:[id number] Procedures Date Procedure Procedure Detail Performing Clinician Start: 06-10-2024 Plain radiography of pelvis Lorenzo Rose MD Work Phone: Start: 06-10-2024 X-ray of right knee, four views Lorenzo Rose MD Work Phone: Start: 12-25-2023 End: 12-25-2023 Screening mammography of bilateral breasts MD Lorenzo Rose Work Phone: Start: 10-31-2023 Colonoscopy Lorenzo hdz MD Work Phone: Start: 12-19-2022 Mammography Lorenzo hdz MD Work Phone: Start: 12-14-2021 Screening mammograph y of bilateral breasts MD Lorenzo Rose Work Phone: Plan of Treatment Date Care Activity Detail Author Start: 10-30-2033 Screening for malign ant neoplasm of colon [facility] Start: 05-29-2025 Medicare Annual Well ness (AWV) Medicare Annual Wellness (AWV) [facility] Start: 05-08-2025 Pneumococcal Vaccine : 65+ Years (1 of 2 - PCV) Pneumococcal Vaccine: 65+ Years (1 of 2 - PCV) [facility] Comment on above: Postponed from 11/03 (Patient Refused) Postponed from 11/03 (Patient Refused) Start: 02-24-2025 End: 09-24-2025 Comprehensive metabolic 2000 panel - Serum or Plasma Comprehensive metabolic panel Lab Routine Primary hypertension Screening for diabetes mellitus (DM) Expected: 02/24/2025 (Approximate), Expires: 09/24/2025 [facility] Work Phone: Comment on above: Expected: 02/24/2025 (Approximate), Expires: 09/24/2025 Start: 02-24-2025 End: 09-24-2025 Lipid 1996 panel - Serum or Plasma Lipid panel Lab Routine Primary hypertension Encounter for lipid screening for cardiovascular disease Expected: 02/24/2025 (Approximate), Expires: 09/24/2025 [facility] Comment on above: Expected: 02/24/2025 (Approximate), Expires: 09/24/2025 Start: 12-24-2024 Screening for malign ant neoplasm of breast Mammogram [facility] Start: 11-18-2024 Influenza vaccination Influenza Vacc ine (#1) [facility] Start: 09-24-2024 End: 09-24-2026 Echocardiogram 2D complete Echocardiogram 2D complete Echocardiography Routine Primary hypertension Nonrheumatic mitral valve regurgitation Rheumatic aortic valve insufficiency Heart murmur Pulmonary hypertension (HCC) Expected: 09/24/2024 (Approximate), Expires: 09/24/2026 [facility] Comment on above: Expected: 09/24/2024 (Approximate), Expires: 09/24/2026 Start: 09-24-2024 End: 09-24-2024 Patient encounter procedure 09/24/2024 9:00 AM EDT Office Visit [facility] [address] [place] [address] Lorenzo Rose MD [address] [facility] [address] [place] [address] [facility] Start: 09-16-2024 Influenza vaccination Influenza Vacc ine (#1) [facility] Comment on above: Postponed from 11/18 (Patient Refused) Start: 06-10-2024 Plain radiography of pelvis XR pelvis 1-2V [facility] Start: 06-10-2024 X-ray of right knee, four views XR knee RT 4V* [facility] Start: 06-10-2024 XR Knee - right 4 Views [facility] Start: 06-10-2024 XR Pelvis 1 or 2 Views [facility] Start: 05-14-2024 End: 05-14-2024 Patient encounter procedure 05/14/2024 2:30 PM EST Office Visit [facility] [address] [place] [address] Lorenzo Rose MD [address] [place] [address] (Fax) Primary hypertension (CMS/HCC); Situational mixed anxiety and depressive disorder (CMS/HCC); MONTSERRAT (generalized anxiety disorder) (CMS/HCC); Polypharmacy [facility] Comment on above: Primary hypertension (CMS/HCC); Situational mixed anxiety and depressive disorder (CMS/HCC); MONTSERRAT (generalized anxiety disorder) (CMS/HCC); Polypharmacy Start: 05-07-2024 End: 05-07-2024 Patient encounter procedure 05/07/2024 2:30 PM EST Office Visit [facility] [address] [place] [address] Lorenzo Rose MD [address] [place] [address] (Fax) [facility] Start: 01-13-2024 Medicare Annual Well ness (AWV) Medicare Annual Wellness (AWV) [facility] Start: 12-21-2023 End: 12-21-2023 Patient encounter procedure 12/21/2023 3:45 PM EDT Office Visit [facility] [address] [place] [address] Lorenzo Rose MD [address] [place] [address] (Fax) Arrived [facility] Comment on above: Arrived Start: 12-20-2023 Screening for malign ant neoplasm of breast Mammogram [facility] Start: 11-22-2023 End: 11-22-2023 Patient encounter procedure 11/22/2023 9:00 AM EDT Office Visit [facility] [address] [place] [address] Lorenzo Rose MD [address] [place] [address] (Fax) Arrived [facility] Comment on above: Arrived Start: 11-19-2023 Influenza vaccination Influenza Vacc ine (#1) [facility] Start: 11-13-2023 End: 11-13-2023 Patient encounter procedure 11/13/2023 1:15 PM EDT Office Visit [facility] [address] [facility] [address] [place] [id number] Josh Cox DO [address] [address] [facility] Start: 11-08-2023 End: 11-07-2024 Comprehensive metabolic 2000 panel - Serum or Plasma Comprehensive metabolic panel Lab Routine Primary hypertension (CMS/HCC) Expected: 11/08/2023 (Approximate), Expires: 11/07/2024 [facility] Work Phone: Comment on above: Expected: 11/08/2023 (Approximate), Expires: 11/07/2024 Start: 11-08-2023 End: 11-07-2024 Lipid 1996 panel - Serum or Plasma Lipid panel Lab Routine Screening for lipid disorders Expected: 11/08/2023 (Approximate), Expires: 11/07/2024 [facility] Comment on above: Expected: 11/08/2023 (Approximate), Expires: 11/07/2024 Start: 11-08-2023 End: 11-08-2023 Patient encounter procedure 11/08/2023 10:00 AM EDT Office Visit [facility] [address] [address] Lorenzo Rose MD [address] [place] [address] (Fax) Situational mixed anxiety and depressive disorder (CMS/HCC); MONTSERRAT (generalized anxiety disorder) (CMS/HCC); Primary hypertension (CMS/HCC); Polypharmacy [facility] Comment on above: Situational mixed an xiety and depressive disorder (CMS/HCC); MONTSERRAT (generalized anxiety disorder) (CMS/HCC); Primary hypertension (CMS/HCC); Polypharmacy Start: 11-03-1961 Pneumococcal Vaccine : 65+ Years (1 of 2 - PCV) Pneumococcal Vaccine: 65+ Years (1 of 2 - PCV) [facility] Start: 1955 Screening for malign ant neoplasm of colon [facility] Immunizations Immunization Date Immunization Notes Care Provider Fa cility 01-21-2000 hepatitis B vaccine, adult dosage Lorenzo Rose MD Work Phone: [facility] 08-06-1999 hepatitis B vaccine, adult dosage Lorenzo Rose MD Work Phone: [facility] 07-07-1999 hepatitis B vaccine, adult dosage Lorenzo Rose MD Work Phone: [facility] Payers Date Payer Category Payer Self-pay [id number] 2023 Private Health Insurance [id number] 2023 Private Health Insurance CLI [id number] 2020 Medicare [id number] 2020 Medicare [id number] Self-pay [id number] 1955 Unknown [id number] 2.16. [id number] 1955 Unknown [id number] 2.16. [id number] 1955 Unknown [id number] 2.16.8 [id number] 1955 Unknown [id number] 2.16.8 [id number] 1955 Unknown [id number] 2.16.84 [id number] 1955 Unknown [id number] 2.16.84 [id number] 1955 Unknown [id number] 2.16.84 [id number] 1955 Unknown [id number] 2.16.84 [id number] 1955 Unknown [id number] 2.16.84 [id number] 1955 Unknown [id number] 2.16.84 [id number] Unknown [id number] Unknown [id number] 2.16.84 [id number] Unknown [id number] 2.16.8 [id number] Unknown [id number] 2.16.8 [id number] Social History Date Type Detail Facility Start: 05-28-2020 End: 11-10-2022 Tobacco smoking status NMIS Never smoked tobacco (finding) [facility] Start: 1955 Sex Assigned At Female F [facility] Start: 11-10-2022 Tobacco use and exposure Smoke less tobacco non-user [facility] Start: 11-22-2023 End: 09-24-2024 Alcoholic beverage intake Ex-drinker (finding) [facility] Start: 11-22-2023 End: 05-01-2024 Alcoholic beverage intake [facility] Start: 01-12-2023 End: 05-01-2024 Humiliation, Afraid, Rape, and Kick questionnaire [HARK] [facility] Within the last year , have you been afraid of your partner or ex-partner? No [facility] Are you now , , , , never or living with a partner? [facility] How often to you hav e a drink containing alcohol? Monthly or less [facility] How many standard dr inks containing alcohol do you have on a typical day? 1 or 2 [facility] How often do you hav e 6 or more drinks on 1 occasion? Never [facility] How hard is it for y ou to pay for the very basics like food, housing, medical care, and heating Not hard at all [facility] Do you feel stress - tense, restless, nervous, or anxious, or unable to sleep at night because your mind is troubled all the time - these days [OSQ] To some extent [facility] (I/We) worried wheth er (my/our) food would run out before (I/we) got money to buy more. Never true [facility] Start: 11-09-2022 Alcohol Comment Caffeine intak e: 2 cups per day coffee [facility] Start: 1955 Sex assigned at Not on file [facility] Do you feel stress - tense, restless, nervous, or anxious, or unable to sleep at night because your mind is troubled all the time - these days [OSQ] Only a little [facility] Start: 06-10-2024 End: 06-11-2024 Sex Female (finding) [facility] NEGATED: Highlighted rowStart: NINF History of tobacco use Passive smoker [facility] Functional Status Date Assessment Result Facility 09-24-2024 Patient Health Quest ionnaire 2 item (PHQ-2) [Reported] [facility] Clinical Notes 11-08-2023 to 09-24-2024 Lorenzo Rose MD - 09/24/2024 9:00 AM Esther Rose MD - 09/11/2024 2:00 PM EDT Note Date & Type Note Facility 09-24-2024 History of Presen t illness Narrative Images from the original note were not included. Patient ID: Ruth Richards is a 68 y.o. female who presents for: Hypertension Patient is here for follow-up of elevated blood pressure. She occasionally exercising and is adherent to a low-salt diet. Blood pressure is well controlled at home. Cardiac symptoms: none. Patient denies chest pain, dyspnea, irregular heart beat, lower extremity edema, and palpitations. Cardiovascular risk factors: advanced age (older than 55 for men, 65 for women) and hypertension. Use of agents associated with hypertension: none. History of target organ damage: none. Anxiety Patient is here for evaluation of anxiety. He/She has the following anxiety symptoms: insomnia. Onset of symptoms was approximately several years ago. Symptoms have been stable since that time. He/She denies current suicidal and homicidal ideation. Family history significant for no psychiatric illness.Possible organic causes contributing are: none. Previous treatment includes medication Celexa. He/She complains of the following medication side effects: none. Weened herself off has been off about a week. Review of Systems Constitutional: Negative for activity change and fatigue. Respiratory: Negative for cough, shortness of breath and wheezing. Cardiovascular: Negative for chest pain, palpitations and leg swelling. Neurological: Negative for light-headedness and headaches. Objective The patient is pleasant and in no acute distress. The neck is supple and trachea is midline. No masses are appreciated. The heart is regular rate and rhythm without S3, S4. //harsh sounding systolic murmur heard best near the right 2nd interspace. No heave or thrill noted. The patient has normal respiratory pattern. The breath sounds are symmetrical without evidence of rhonchi or rales. No wheezing. The skin is warm and dry. The lower extremities have trace edema. The patient has good eye contact and speech is clear. Appropriate affect. 11/08/2023 9:53 AM 11/22/2023 8:28 AM 12/21/2023 3:31 PM 05/14/2024 2:29 PM 05/29/2024 9:35 AM 09/11/2024 1:56 PM 09/24/2024 9:05 AM Vitals BMI 23.4 kg/m2 23.4 kg/m2 23.4 kg/m2 25.99 kg/m2 26.71 kg/m2 26.76 kg/m2 27.76 kg/m2 BSA (m2) 1.75 m2 1.75 m2 1.75 m2 1.84 m2 1.87 m2 1.87 m2 1.91 m2 Systolic 124 140 136 128 Diastolic 74 86 80 76 Heart Rate 48 48 67 55 51 SpO2 98 % 98 % 99 % 99 % 98 % Height (in) 5' 6 5' 6 5' 6 5' 6 5' 6 5' 6 5' 6 Weight (lb) 145 145 145 161 165.5 165.8 172 Visit Report Report Report Report Report Report Report Allergies Allergen Reactions Azatadine Other Reaction(s): hives Cefuroxime Other Reaction(s): hives Metoprolol Anxiety and Dizziness Pseudoephedrine Other Reaction(s): hives Tramadol Other Reaction(s): hives Current Outpatient Medications on File Prior to Visit Medication Sig Dispense Refill ALPRAZolam (Xanax) 0.25 MG tablet Take 1 tablet (0.25 mg) by mouth 3 (three) times a day as needed for anxiety for up to 7 days 21 tablet 0 [DISCONTINUED] citalopram (CeleXA) 20 MG tablet Take 1 tablet (20 mg) by mouth Daily (Patient not taking: Reported on 09/24/2024) 90 tablet 1 No current facility-administered medications on file prior to visit. 1. Primary hypertension Chronic problem, stable, to goal. In prescribing a renewal to their current medication, consideration of the following encompasses moderate decision making; the current prescriptions and supplements, the current allergies and medication intolerances, current medical conditions, and potential drug interactions. The patient was given a chance to ask questions today and all questions were answered. - nebivolol (Bystolic) 10 MG tablet; Take 1 tablet (10 mg) by mouth Daily Pt using good rx instead insurance Dispense: 90 tablet; Refill: 1 - losartan (Cozaar) 100 MG tablet; Take 1 tablet (100 mg) by mouth Daily Dispense: 90 tablet; Refill: 1 - Comprehensive metabolic panel; Future - Lipid panel; Future - Echocardiogram 2D complete; Future - Comprehensive metabolic panel - Lipid panel - Echocardiogram 2D complete 2. MONTSERRAT (generalized anxiety disorder) Chronic problem, stable Patient is doing very well and we had previously discussed her weaning and discontinuing the citalopram and she has done so well she still feels a little bit off but she has only been completely off for 1 week. I have asked her to give it another week if she is not feeling better we could always restart a lower dose. She has not been taking the Xanax but she does have a few left so we have mutually agreed to just keep it in her med list so I would know she has them at home. 3. Overweight (BMI 25.0-29.9) Exercise program 4. Screening for diabetes mellitus (DM) - Comprehensive metabolic panel; Future - Comprehensive metabolic panel 5. Encounter for lipid screening for cardiovascular disease - Lipid panel; Future - Lipid panel 6. Nonrheumatic mitral valve regurgitation She had previous echocardiogram a little over 2 years ago. She also has a history of rheumatic fever as a child. Uncertain whether the mild mitral valve regurgitation on the previous echocardiogram was rheumatic or not. Due for re-evaluation. - Echocardiogram 2D complete; Future - Echocardiogram 2D complete 7. Rheumatic aortic valve insufficiency As noted above but this was more suspicious for rheumatic sequela. I did look back in the chart and her murmur was previously graded at a 1-2 and soft and therefore is noticeably different today. Also on the previous echocardiogram the aortic valve insufficiency was noted. There was also some sclerosis of the valve. It is time for re-evaluation. - Echocardiogram 2D complete; Future - Echocardiogram 2D complete 8. Heart murmur Worsening. - Echocardiogram 2D complete; Future - Echocardiogram 2D complete 9. Pulmonary hypertension (HCC) Chronic problem identified on the previous echocardiogram. No overt symptoms of right heart failure. - Echocardiogram 2D complete; Future - Echocardiogram 2D complete documented in this encounter [facility] 09-11-2024 History of Presen t illness Narrative Images from the original note were not included. Patient ID: Ruth Richards is a 68 y.o. female who presents for: Knee Pain: Patient who presents with knee pain involving the right knee. Onset was several years . Inciting event: none known. Current symptoms include: locking, pain located right knee on the left side of her patella, popping sensation, stiffness, and swelling. Pain is aggravated by going up and down stairs, standing, and walking. Patient has had prior knee problems. Objective She is in no acute distress Her right knee has its usual arthritic appearance except that it is a little bit swollen along the joint line especially on the medial aspect. This is nonpitting. There is no increasing calor or rubor. She is limping slightly. Full exam deferred today. 07/27/2023 10:55 AM 10/09/2023 2:20 PM 11/08/2023 9:53 AM 11/22/2023 8:28 AM 12/21/2023 3:31 PM 05/14/2024 2:29 PM 05/29/2024 9:35 AM Vitals BMI 24.37 kg/m2 23.4 kg/m2 23.4 kg/m2 23.4 kg/m2 23.4 kg/m2 25.99 kg/m2 26.71 kg/m2 BSA (m2) 1.79 m2 1.75 m2 1.75 m2 1.75 m2 1.75 m2 1.84 m2 1.87 m2 Systolic 120 124 140 136 Diastolic 80 74 86 80 Heart Rate 48 48 67 55 SpO2 98 % 98 % 99 % 99 % Height (in) 5' 6 5' 6 5' 6 5' 6 5' 6 5' 6 5' 6 Weight (lb) 151 145 145 145 145 161 165.5 Visit Report Report Report Report Report Report Report Allergies Allergen Reactions Azatadine Other Reaction(s): hives Cefuroxime Other Reaction(s): hives Metoprolol Anxiety and Dizziness Pseudoephedrine Other Reaction(s): hives Tramadol Other Reaction(s): hives Current Outpatient Medications on File Prior to Visit Medication Sig Dispense Refill ALPRAZolam (Xanax) 0.25 MG tablet Take 1 tablet (0.25 mg) by mouth 3 (three) times a day as needed for anxiety for up to 7 days 21 tablet 0 citalopram (CeleXA) 20 MG tablet Take 1 tablet (20 mg) by mouth Daily 90 tablet 1 losartan (Cozaar) 100 MG tablet Take 1 tablet (100 mg) by mouth Daily 90 tablet 0 nebivolol (Bystolic) 10 MG tablet Take 1 tablet (10 mg) by mouth Daily Pt using good rx instead insurance 90 tablet 1 No current facility-administered medications on file prior to visit. 1. Primary osteoarthritis of right knee We discussed her options and she specifically asking for another steroid injection. She got good relief from the last 1. Prior to the arthrocentesis, we confirmed with the patient which knee(s) the procedure was to be performed on. Verbal informed consent was obtained, the risks include; bleeding/bruising, infection, dimpling of the skin, post injection pain or nerve damage, and the possibility of no improvement to the patient's complaints. The arthrocentesis to the right knee joint was done with the patient in a seated position. The skin was prepped with alcohol until clear and then betadine to dry. A 25-guage, 1 1/2-inch needle was inserted into the space between the tibial plateau and the patella. Once within the knee joint, I injected a solution containing 80 mg of Depo-Medrol (1cc). The needle was removed and a dressing was applied. The patient tolerated the procedure well. The patient has been instructed in post-procedure care. - methylPREDNISolone acetate (DEPO-Medrol) injection 80 mg 2. Overweight (BMI 25.0-29.9) Encouraged bicycle or walking program 3. Chronic pain of right knee (Primary) - methylPREDNISolone acetate (DEPO-Medrol) injection 80 mg documented in this encounter [facility] 06-10-2024 Evaluation note Diagnosis Onset Date Resolution Primary osteoarthritis of right knee acute June 10, 2024 12:12pm [facility] Work Phone: [phone]) 218-236710-03-2024 History of Present illness Narrative* Lorenzo Rose MD - 12/21/2023 3:45 PM EDT Images from the original note were not included. Patient ID: Ruth Richards is a 68 y.o. female who presents for: Patient who presents with knee pain involving the right knee. Onset was several years . Inciting event: none known. Current symptoms include: locking, pain located right knee on the left side of her patella, popping sensation, stiffness, and swelling. Pain is aggravated by going up and down stairs, standing, and walking. Patient has had prior knee problems. Objective Patient has a slight limp. The right knee is arthritic appearing with a little bit of swelling. No Increase rubor or calor. Crepitus with patellar grind. The ligaments all appear to be stable. Adequate range of motion. Visit Vitals OB Status Postmenopausal Smoking Status Never Allergies Allergen Reactions Azatadine Other Reaction(s): hives Cefuroxime Other Reaction(s): hives Metoprolol Anxiety and Dizziness Pseudoephedrine Other Reaction(s): hives Tramadol Other Reaction(s): hives Current Outpatient Medications on File Prior to Visit Medication Sig Dispense Refill ALPRAZolam (Xanax) 0.25 MG tablet Take 1 tablet (0.25 mg) by mouth 3 (three) times a day as needed for anxiety for up to 7 days 21 tablet 0 citalopram (CeleXA) 20 MG tablet Take 1 tablet (20 mg) by mouth Daily 90 tablet 1 losartan (Cozaar) 50 MG tablet Take 1 tablet (50 mg) by mouth Daily 90 tablet 1 nebivolol (Bystolic) 10 MG tablet Take 1 tablet (10 mg) by mouth Daily Pt using good rx instead insurance 90 tablet 1 pramoxine (Proctofoam) 1 % foam Insert 1 application into the rectum 2 (two) times a day as needed. predniSONE (Deltasone) 10 MG tablet Every 2 day tapering dose; 5,5,4,4,3,3,2,2,1,1,0.5,0.5 31 tablet 0 No current facility-administered medications on file prior to visit. 1. Primary osteoarthritis of right knee (Primary) I discussed with her some options to try and help with her knee pain. She really does not want to proceed with a total knee replacement although she knows at some point she will. Her left knee replacement has done her well. She is specifically asking for steroid injection today. - methylPREDNISolone acetate (DEPO-Medrol) injection 80 mg 2. Chronic pain of right knee Prior to the arthrocentesis, we confirmed with the patient which knee(s) the procedure was to be performed on. Verbal informed consent was obtained, the risks include; bleeding/bruising, infection, dimpling of the skin, post injection pain or nerve damage, and the possibility of no improvement to the patient's complaints. The arthrocentesis to the right knee joint was done with the patient in a seated position. The skin was prepped with alcohol until clear and then betadine to dry. A 25- guage, 1 1/2-inch needle was inserted into the space between the tibial plateau and the patella. Once within the knee joint, I injected a solution containing 80 mg of Depo-Medrol (1cc). The needle was removed and a dressing was applied. The patient tolerated the procedure well. The patient has been instructed in post-procedure care. - methylPREDNISolone acetate (DEPO-Medrol) injection 80 mg [id number] History of Present illness Narrative* Lorenzo Rose MD - 11/22/2023 9:00 AM EDT Images from the original note were not included. Patient ID: Ruth Richards is a 68 y.o. female who presents for: Patient who presents with knee pain involving the right knee. Onset was several years . Inciting event: none known. Current symptoms include: locking, pain located right knee on the left side of her patella, popping sensation, stiffness, and swelling. Pain is aggravated by going up and down stairs, standing, and walking. Patient has had prior knee problems. Patient presents with left hip pain. Onset of the symptoms was several weeks ago. Inciting event: none. The patient reports the hip pain is better with motion . Aggravating symptoms include: standing. Patient has had no prior hip problems. On further questioning the hip pain is really lumbar low back pain with the radiating component into the inguinal canal region. Review of Systems Gastrointestinal: Negative for abdominal pain. Genitourinary: Negative for frequency and urgency. No loss of bowel or bladder control. Objective The patient is pleasant and in no acute distress The head is normocephalic and atraumatic The patient does not appear to have a gross neurologic deficit. The patient has good eye contact and clear speech Her gait is slightly wide-based with a minimal limp. She is able to get in the chair. Her hip height is even bilaterally. She has pretty significant right paraspinal hypertonicity this is not tender. The left is minimally hypertonic. SI joints are nontender. Left sacroiliac notch is mildly tender. The right is not. She has decreased range of motion in all directions but mostly so onleft lateral flexion. She has some pain with that also. The right knee has some diffuse swelling without significant rubor or calor. She is just coming up short of full extension. She can flex past 90 degrees. Just some mild diffuse tenderness. Visit Vitals Pulse (!) 48 Ht 5' 6 Wt 145 lb SpO2 98% BMI 23.40 kg/m OB Status Postmenopausal Smoking Status Never BSA 1.75 m No visits with results within 6 Month(s) from this visit. Latest known visit with results is: No results found for any previous visit. Allergies Allergen Reactions Azatadine Other Reaction(s): hives Cefuroxime Other Reaction(s): hives Metoprolol Anxiety and Dizziness Pseudoephedrine Other Reaction(s): hives Tramadol Other Reaction(s): hives Current Outpatient Medications on File Prior to Visit Medication Sig Dispense Refill ALPRAZolam (Xanax) 0.25 MG tablet Take 1 tablet (0.25 mg) by mouth 3 (three) times a day as needed for anxiety for up to 7 days 21 tablet 0 citalopram (CeleXA) 20 MG tablet Take 1 tablet (20 mg) by mouth Daily 90 tablet 1 losartan (Cozaar) 50 MG tablet Take 1 tablet (50 mg) by mouth Daily 90 tablet 1 nebivolol (Bystolic) 10 MG tablet Take 1 tablet (10 mg) by mouth Daily Pt using good rx instead insurance 90 tablet 1 pramoxine (Proctofoam) 1 % foam Insert 1 application into the rectum 2 (two) times a day as needed. No current facility-administered medications on file prior to visit. 1. Lumbar back pain with radiculopathy affecting left lower extremity We had a discussion today and I do suspect that he is aggravating the lumbar back a little bit. Behzad already seen the chiropractor twice. She notes after the 2nd time she was actually feeling someworse pain in her left lower back. We discussed about further diagnostic evaluation at this time versus a trial of treatment. She would prefer a trial of treatment. She would also prefer to use her [id number] ibuprofen regularly. I discussed for me that would mean 3 tablets 3 times daily while she is on the steroid taper. We discussed and mutually agreed that it does not appear she needs muscle relaxants at this. She does have a home exercise program that she is not specifically doing I have asked her in a day or 2 to go ahead and start that back up. She understands if she does not improve after this trial of treatment that will do diagnostic lumbar imaging and possibly a physical therapy referral. In prescribing a new medication consideration of the following encompasses moderate decision making: the current prescriptions and supplements, the current allergies and medication intolerances, the current medical conditions, and potential drug interactions. Risks, benefits, and reason for starting their medication were discussed. The patient was given a chance to ask questions today and all questions were answered. The patient is to contact us if any other questions arise or if any problems occur with the adjustment in their medication. - predniSONE (Deltasone) 10 MG tablet; Every 2 day tapering dose; 5,5,4,4,3,3,2,2,1,1,0.5,0.5 Dispense: 31 tablet; Refill: 0 2. Primary osteoarthritis of right knee As above [id number] History of Present illness Narrative* Lorenzo Rose MD - 11/08/2023 10:00 AM EDT Images from the original note were not included. Patient ID: Ruth Richards is a 68 y.o. female who presents for: Hypertension Patient is here for follow-up of elevated blood pressure. She is exercising and is adherent to a low-salt diet. Blood pressure is well controlled at home. Cardiac symptoms: none. Patient denies chestpain, dyspnea, exertional chest pressure/discomfort, irregular heart beat, lower extremity edema, and palpitations. Cardiovascular risk factors: advanced age (older than 55 for men, 65 for women), hypertension, and sedentary lifestyle. Use of agents associated with hypertension: none. History of target organ damage: none. Anxiety Patient is here for evaluation of anxiety. He/She has the following anxiety symptoms: insomnia, racing thoughts. Onset of symptoms was approximately several years ago. Symptoms have been stable sincethat time. He/She denies current suicidal and homicidal ideation. Family history significant for nopsychiatric illness.Possible organic causes contributing are: none. Previous treatment includes medication Celexa. He/She complains of the following medication side effects: none. Review of Systems Constitutional: Negative for activity change and fatigue. Respiratory: Negative for cough, shortness of breath and wheezing. Cardiovascular: Negative for chest pain, palpitations and leg swelling. Neurological: Negative for light-headedness and headaches. No symptoms of syncope or near-syncope. Objective The patient is pleasant and in no acute distress. The neck is supple and trachea is midline. No masses are appreciated. The heart is regular rate and rhythm without S3, S4. No murmur. The patient has normal respiratory pattern. The breath sounds are symmetrical without evidence of rhonchi or rales. No wheezing. The skin is warm and dry. The lower extremities have trace edema. The patient has good eye contact and speech is clear. Appropriate affect. Visit Vitals BP 124/74 Pulse (!) 48 Ht 5' 6 Wt 145 lb SpO2 98% BMI 23.40 kg/m OB Status Postmenopausal Smoking Status Never BSA 1.75 m No visits with results within 6 Month(s) from this visit. Latest known visit with results is: No results found for any previous visit. Allergies Allergen Reactions Azatadine Other Reaction(s): hives Cefuroxime Other Reaction(s): hives Metoprolol Anxiety and Dizziness Pseudoephedrine Other Reaction(s): hives Tramadol Other Reaction(s): hives Current Outpatient Medications on File Prior to Visit Medication Sig Dispense Refill ALPRAZolam (Xanax) 0.25 MG tablet Take 1 tablet (0.25 mg) by mouth 3 (three) times a day as needed for anxiety for up to 7 days 21 tablet 0 citalopram (CeleXA) 20 MG tablet Take 1 tablet (20 mg) by mouth Daily Notice dose change (Patient taking differently: Take 20 mg by mouth Daily) 90 tablet 0 losartan (Cozaar) 50 MG tablet Take 1 tablet (50 mg) by mouth Daily 90 tablet 1 nebivolol (Bystolic) 10 MG tablet Take 1 tablet (10 mg) by mouth Daily Pt using good rx instead insurance 90 tablet 1 pramoxine (Proctofoam) 1 % foam Insert 1 application into the rectum 2 (two) times a day as needed. No current facility-administered medications on file prior to visit. 1. MONTSERRAT (generalized anxiety disorder) ([facility]) Chronic problem, stable, overall she is doing well. She is sleeping good at night. She denies any side effects from the medication. In prescribing a renewal to their current medication, consideration of the following encompasses moderate decision making; the current prescriptions and supplements, the current allergies and medication intolerances, current medical conditions, and potential drug interactions. Any changes to risks, benefits, and reason for renewing their current medication due to the above were discussed. The patient was given a chance to ask questions today and all questions were answered. The patient is to contact us if any other questions arise or if any problems occur. (Utilizing the original 1994/1996 guidelines or the 2020 office/outpatient code guidelines for selecting the level of E/M service, In both sets of guidelines, prescription drug management appears in the moderate medical decision making (MDM) row. Neither the original guidelines nor the new guidelines state that a new prescription or change is needed in order to credit prescription drug management) - citalopram (CeleXA) 20 MG tablet; Take 1 tablet (20 mg) by mouth Daily Dispense: 90 tablet; Refill: 1 2. Primary hypertension (CMS/HCC) Chronic problem, stable, to goal. Heart rate a little bit slow when it was taken here in the officebut during auscultation it did not appear to be that bradycardic. She is asymptomatic from the bradycardia standpoint. Due to my illness we filled her losartan last week. Upon review of the medical record it has been quite sometime since she has actually had lab work. She thought she had had lab work in there but we do not have any dated all the way back to 2019. She did have an ER visit somewhere along the line but I doubt they did everything we need to do. We havemutually agreed for her to go ahead and get the lab work now and we will call her back with the results. - nebivolol (Bystolic) 10 MG tablet; Take 1 tablet (10 mg) by mouth Daily Pt using good rx instead insurance Dispense: 90 tablet; Refill: 1 - Comprehensive metabolic panel; Future - Comprehensive metabolic panel 3. Polypharmacy Chronic problem The patient meets the criteria for polypharmacy; 5 or more prescriptions or multi-morbidity definedas 5 or more diagnoses. Polypharmacy can significantly increase the risk of preventable adverse drug events and negatively impact adherence. Consideration of diverse factors such as clinician agreement, patient perspective,and de-prescribing, as appropriate can improve patient outcomes while simplifying care. This requires longitudinal monitoring as there is at least a moderate risk of morbidity and requires at least amoderate degree of evaluation and management. 4. Screening for lipid disorders - Lipid panel; Future - Lipid panel [facility] noteNo assessment information availableSt. [facility] Work Phone: Evaluation note* Diagnosis Primary osteoarthritis of right knee- Primary Chronic pain of right knee [facility]* Diagnosis MONTSERRAT (generalized anxiety disorder) (CMS/HCC)- Primary Generalized anxiety disorder Primary hypertension (CMS/HCC) Unspecified essential hypertension Polypharmacy Issue of repeat prescriptions Screening for lipid disorders [facility]* Diagnosis Lumbar back pain with radiculopathy affecting left lower extremity- Primary Primary osteoarthritis of right knee [facility]* Diagnosis Primary hypertension (CMS/HCC) Unspecified essential hypertension [facility]* Diagnosis Onset Date Resolution Status Admit Date Primary osteoarthritis of ri ght knee acute June 10, 2024 12:12pm [facility] Work Phone: Evaluation note* Diagnosis Chronic pain of right knee- Primary Primary osteoarthritis of right knee Overweight (BMI 25.0-29.9) Overweight Primary hypertension Unspecified essential hypertension MONTSERRAT (generalized anxiety disorder) Generalized anxiety disorder Overweight (BMI 25.0-29.9) Overweight [facility]* Diagnosis Primary hypertension Unspecified essential hypertension MONTSERRAT (generalized anxiety disorder) Generalized anxiety disorder Overweight (BMI 25.0-29.9) Overweight Screening for diabetes mellitus (DM) Screening for diabetes mellitus Encounter for lipid screening for cardiovascular disease Nonrheumatic mitral valve regurgitation Rheumatic aortic valve insufficiency Heart murmur Undiagnosed cardiac murmurs Pulmonary hypertension (HCC) Other chronic pulmonary heart diseases documented in this encounter [facility] Healthcare Summary Purpose Family History No Family History Records FoundNo Family History Records FoundNo Family History Records FoundNo Family History Records Found Advance Directives Advance Directive Response Recorded Date/ Time Advance Directives No April 28, 2017 1:16pm Documents on File Type Date Recorded Patient Supervisor Prop Making Expl anation Advance Directives and Living Will 04/11/2023 1:55 PM 2018-07-04 Living Wi ll Power of Supervisor Operations 04/11/2023 1:55 PM 07-04 Healthcare Power Of Supervisor Operations Documents on File Type Date Recorded Patient Supervisor Prop Making Expl anation Advance Directives and Living Will 04/11/2023 1:55 PM 2018-07-04 Living Wi ll Power of Supervisor Operations 04/11/2023 1:55 PM 2019- 04-17 Healthcare Power Of Supervisor Operations Chief Complaint and Reason for Visit Chief Complaint Screening Chief Complaint z12.31 Chief Complaint Admit Date M25.561 - Pain in right knee June 10, 2024 11:55am [employer] [facility] NX June 10, 2024 12: 12pm Reason for Visit Admit Date Primary osteoarthritis of right knee Mar 2024 12:12pm Additional Source Comments INFORMATION SOURCE (unrecogn ized section and content) DATE CREATED AUTHOR 06/01/2018 [facility] DATE CREATED AUTHOR AUTHOR'S ORGANIZ ATION 11/06/2018 [facility] DATE CREATED AUTHOR AUTHOR'S ORGANIZ ATION 06/11/2024 [facility] DATE CREATED AUTHOR AUTHOR'S ORGANIZ ATION 09/28/2024 [facility] EPIC Care Teams (unrecognized sec tion and content) Team Status: Active Member Role Status Dates Lorenzo Rose MD Primary Care Provider Active Team Status: Inactive Member Role Status Dates Lorenzo Rose MD Primary Care Provider Active Start: June 10, 2024 End: June 10, 2024 Matthias Alcaraz II, MD Attending Provider Active Start: June 10, 2024 End: June 10, 2024 Team Status: Active Member Role Status Dates Lorenzo Rose MD Primary Care Provider Active Start: June 10, 2024 Matthias Alcaraz II, MD Attending Provider Active Start: June 10, 2024 Team Status: Inactive Member Role Status Dates Lorenzo Rose MD Primary Care Provi darlene, Attending Provider Active Start: December 25, 2023 End: December 25, 2023 Team Status: Inactive Member Role Status Dates Lorenzo Rose MD Primary Care Provider, Attending Provider Active 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 Relationship Specialty Start Date End Date Lorenzo Rose MD [address] [place] [place] [address] PCP - [facility] 08/11/22 Lorenzo Rose MD [address] [facility] [place] [address] PCP - General Family Medicine 07/26/22 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 Relationship Specialty Start Date End Date Lorenzo Rose MD [address] [place] [address] (Fax) PCP - [facility] 08/11/22 Lorenzo Rose MD [address] [place] [address] (Fax) PCP - General Family Medicine 07/26/22 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 Relationship Specialty Start Date End Date Lorenzo Rose MD [address], [facility] (Fax) PCP - ACO Reach 08/11/22 Lorenzo Rose MD [address] [place], [facility] (Fax) PCP - General Family Medicine 07/26/22 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 Relationship Specialty Start Date End Date Lorenzo Rose MD [address] [place] [address] (Fax) PCP - ACO Reach 08/11/22 Lorenzo Rose MD [address] [facility] [place], [facility] (Fax) PCP - General Family Medicine 07/26/22 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 Relationship Specialty Start Date End Date Lorenzo Rose MD [address] [place] [address] (Fax) PCP - ACO Reach 08/11/22 Lorenzo Rose MD [address] [place] [address] (Fax) PCP - General Family Medicine 07/26/22 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 Relationship Specialty Start Date End Date Lorenzo Rose MD [address] [place] [address] (Fax) PCP - ACO Reach 08/11/22 Lorenzo Rose MD [address] [place] [address] (Fax) PCP - General Family Medicine 07/26/22 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 Relationship Specialty Start Date End Date Lorenzo Rose MD [address] [place] [address] (Fax) PCP - ACO Reach 08/11/22 Lorenzo Rose MD [address] [place] [address] (Fax) PCP - General Family Medicine 07/26/22 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 Relationship Specialty Start Date End Date Lorenzo Rose MD [address] [place] [address] (Fax) PCP - ACO Reach 08/11/22 Lorenzo Rose MD [address] [place] [address] (Fax) PCP - General Family Medicine 07/26/22 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 Relationship Specialty Start Date End Date Lorenzo Rose MD [address] [place] [address] (Fax) PCP - ACO Reach 08/11/22 Lorenzo Rose MD [address] [place] [address] (Fax) PCP - General Family Medicine 07/26/22 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 Relationship Specialty Start Date End Date Lorenzo Rose MD [address] [place] [address] (Fax) PCP - ACO Reach 08/11/22 Lorenzo Rose MD [address] [place] [address] (Fax) PCP - General Family Medicine 07/26/22 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 Relationship Specialty Start Date End Date Lorenzo Rose MD [address] [facility] [place] [address] (Fax) PCP - ACO Reach 08/11/22 Lorenzo Rose MD [address] [facility] [place] [address] (Fax) PCP - General Family Medicine 07/26/22 Goals (unrecognized section and content) Goals may be documented in a n alternate sectionGoals may be documented in an alternate sectionGoals may be documented in an alternate sectionGoals may be documented in an alternate sectionGoals may be documented in an alternate section Reason for Visit (unrecogniz ed section and content) Reason Comments Knee Pain Reason Comments Hypertension Anxiety Reason Comments Hip Pain Knee Pain Reason Comments Med Refill Reason Comments Hypertension Anxiety FOR RECORDS PERTAINING TO PATIENTS WHO ARE OR HAVE BEEN ENROLLED IN A CHEMICAL DEPENDENCY/SUBSTANCEABUSE PROGRAM, SOME INFORMATION MAY BE OMITTED. This clinical summary was aggregated from multiple sources. Caution should be exercised in using it in the provision of clinical care. This summary normalizes information from multiple sources, and as a consequence, information in this document may materially change the coding, format and clinical context of patient data. In addition, data may be omitted in some cases. CLINICAL DECISIONS SHOULD BE BASED ON THE PRIMARY CLINICAL RECORDS. [facility]. provides no warranty or guarantee of the accuracy or completeness of information in this document.
== END 2024-10-21 09:57 | disposition home or self-care (01) ==
LOC: CARD 09:58
PROVIDERS: PCP Family Medicine; Visit Provider Family Medicine
DX: I34.0 Nonrheumatic mitral (valve) insufficiency (principal); I10 Essential (primary) hypertension; I06.1 Rheumatic aortic insufficiency; R01.1 Cardiac murmur, unspecified; I27.20 Pulmonary hypertension, unspecified
CPT/HCPCS: 93306